=== PATIENT | male | born 1955 | race Caucasian/White ===

== ENCOUNTER 2018-04-26 20:58 | Outpatient (REF) | payer OTHER, SELFPAY ==
[2018-04-26 22:30] LABS: Bilirubin Small (Negative); Blood Negative (Negative); Clarity Clear; Glucose Negative (Negative); Ketones 15 mg/dL (Negative); Leukocyte Esterase Negative (Negative); Nitrite Negative (Negative); pH 6.5 (5-8)
[2018-04-26 22:32] LABS: Abs Immature Grans 0.04 k/cumm (0.0-0.09); Absolute Basophil Count 0.02 k/cumm (0.0-0.2); Absolute Eosinophil Count 0.06 k/cumm (0.0-0.7); Absolute Monocyte Count 0.79 k/cumm (0.11-0.7); Absolute Neutrophil Count 7.05 k/cumm (1.2-6.7); Basophils % 0.2; Eosinophils % 0.6; HCT 40.6 % (40.0-50.0); HGB 14.3 g/dL (13.5-17.5); Immature Grans % 0.4; Mean Corp. HGB Concentration 35.2 g/dL (32.0-36.0); Mean Corpuscular Hemoglobin 31.6 pg (27.0-33.0); Mean Corpuscular Volume 89.8 fL (80-95); Mean Platelet Volume 10.2 fL (8.0-11.0); Monocytes % 8.5; Neutrophils % 76.3; Platelet Count 281 x1000/uL (130-400); RBC 4.52 m/cumm (4.50-6.00); RBC Distribution Width 12.5 % (11.8-14.1); White Blood Cell Count 9.26 k/cumm (4.4-10.8)
[2018-04-26 22:39] LABS: ALT 51 U/L (12-78); AST 24 U/L (15-37); Albumin 3.4 g/dL (3.4-5.0); Alkaline Phosphatase 51 U/L (46-116); Anion Gap 7.4 mmol/L (3-11); BUN 9 mg/dL (7-18); Bilirubin, Total 1.1 mg/dL (0.2-1.0); CO2 32.6 mmol/L (21.0-32.0); CREATININE 0.78 mg/dL (0.70-1.30); Calcium 8.7 mg/dL (8.5-10.1); Chloride 98 mmol/L (98-107); Glucose 101 mg/dL (70-100); Potassium 3.4 mmol/L (3.5-5.1); Sodium 138 mmol/L (136-145); Total Protein 6.8 g/dL (6.4-8.2)
[2018-04-26 22:55] LABS: Bacteria Few HPF (Negative); C & S Indicated? No; Casts Negative LPF (Negative); Crystals Negative HPF (Negative); Epithelial Cells Rare HPF (Negative); Mucus Heavy (Negative); Other Cells Negative (Negative); RBC 0-2 (0-2); WBC 0-2 HPF (0-5)
== END 2018-04-26 21:18 ==
LOC: NCHCN 20:58
PROVIDERS: PCP Internal Medicine; Visit Provider Internal Medicine
DX: R61 Generalized hyperhidrosis (principal); R25.8 Other abnormal involuntary movements
CPT/HCPCS: 80053; 81003; 81015; 85025

== ENCOUNTER 2018-04-27 13:33 | Outpatient (CLI) | payer OTHER, SELFPAY ==
--- NOTE | 2018-04-27 13:44 | DI.RAD_ITS ---
SYMPTOMS/DIAGNOSIS: NIGHT SWEATS, R61 PA AND LATERAL CHEST: There are no prior comparison exams. There are streaky densities seen in a retrocardiac region suspicious for pneumonia. The remainder of the lung starkey appear clear. The heart size is normal. No effusions are seen. IMPRESSION: Question of a lower lobe pneumonia.
== END 2018-04-27 13:53 ==
PROVIDERS: PCP Internal Medicine; Visit Provider Internal Medicine
DX: R61 Generalized hyperhidrosis (principal); J98.4 Other disorders of lung
CPT/HCPCS: 71046

== ENCOUNTER 2018-05-12 00:18 | Outpatient (CLI) | payer OTHER, SELFPAY ==
--- NOTE | 2018-05-12 10:46 | DI.MRI_ITS ---
SYMPTOMS/DIAGNOSIS: NEW PARKINSON DISEASE, G20 MRI OF THE BRAIN: Routine noncontrast examination was performed. The ventricles and sulci are consistent with the patient's age. The diffusion weighted images show no evidence of an acute infarct. Gradient imaging shows no acute intracranial hemorrhage. The ventricles are intact. The basilar cisterns are patent. There is no acute midline shift or mass effect. There is a flow void seen in the [place] of [place]. The pituitary gland appears grossly unremarkable. There is mucosal thickening seen in the maxillary sinuses. There is a mucous retention cyst or polyp in the left maxillary sinus. The remaining visualized paranasal sinuses are clear. The orbits and retro-orbital soft tissues are unremarkable. There does appear to be normal signal in the doyle. IMPRESSION: Age appropriate cerebral atrophy.
[2018-05-12 13:24] LABS: Folate 6.8 ng/mL (8.6-20.0); Vitamin B12 462 pg/mL (193-986)
[2018-05-13 18:59] LABS: Copper, Serum 1.07 mcg/mL (0.75-1.45)
[2018-05-14 10:53] LABS: Ceruloplasmin 24.9 mg/dL
[2018-05-17 12:01] LABS: Methylmalonic Acid 0.29 nmol/mL (<=0.40)
== END 2018-05-12 00:38 ==
PROVIDERS: PCP Internal Medicine; Visit Provider Psychiatry & Neurology Neurology
DX: G20 Parkinson's disease (principal); G31.1 Senile degeneration of brain, not elsewhere classified
CPT/HCPCS: 36415; 80186; 82390; 70551; 82525; 82607; 82746

== ENCOUNTER 2019-12-11 13:05 | Outpatient (REF) | payer OTHER, SELFPAY ==
[2019-12-11 21:14] LABS: Anion Gap 6.9 mmol/L (3-11); BUN 7 mg/dL (7-18); CO2 31.1 mmol/L (21.0-32.0); CREATININE 0.74 mg/dL (0.70-1.30); Calcium 8.9 mg/dL (8.5-10.1); Chloride 103 mmol/L (98-107); Glucose 100 mg/dL (74-106); Potassium 3.9 mmol/L (3.5-5.1); Sodium 141 mmol/L (136-145)
== END 2019-12-11 13:25 ==
LOC: NCHCN 13:05
PROVIDERS: PCP Internal Medicine; Visit Provider Internal Medicine
DX: Z00.00 Encounter for general adult medical examination without abnormal findings (principal); R68.84 Jaw pain
CPT/HCPCS: 80048

== ENCOUNTER 2019-12-20 02:57 | Outpatient (CLI) | payer OTHER, SELFPAY ==
[2019-12-20] MEDS: Normal Saline - Diluent 50 ML VIAL IV (13:11)
[2019-12-20] MEDS: Omnipaque 350 MG/ML 100 ML BTL IJ (13:21)
--- NOTE | 2019-12-20 13:22 | DI.CT_ITS ---
EXAM: CT NECK W CLINICAL HISTORY: JAW PAIN,R68.84,SLIGHTLY ENLARGED LYMPH NODE LT SUBMENTAL REGION. TECHNIQUE: Imaging Protocol: Axial computed tomography images with coronal and sagittal reformatted images were created and reviewed CONTRAST MATERIAL: Intravenous: Omnipaque 350 Contrast volume:100 ml Contrast route:IV - COMPARISON: No exams were available for comparison FINDINGS: Parotids/submandibular/thyroid gland: Normal. Lymphadenopathy: There are scattered lymph nodes seen along the level one to level three all measuri ng less than 8 mm in short axis diameter which are physiologic in nature. Degenerative changes are se en in the cervical and upper thoracic spine. The temporomandibular joints appear normal. No bony er osions are seen in the mandible. Carotids/Jugular: Within normal limits. Soft tissues: The epiglottis and vocal cords are within normal limits. Images through both lung apice s show mild scarring. Sinuses: Mild ethmoid mucosal thickening and small mucous retention cyst at the floor of the right ma xillary sinus. Clear mastoids. IMPRESSION: No evidence of mass or adenopathy. Mild chronic sinus disease. RADIATION DOSE DELIVERED: 494.79mGy.cm Total DLP DATA REPOSITORY: All CT scans at this facility are submitted to the National Radiology Data Registry (NRDR) Dose Index Registry (DIR) with the [employer] (ACR). RADIATION OPTIMIZATION: All CT scans at this facility use at least one of these dose optimization te chniques: automated exposure control; mA and/or kV adjustment per patient size (includes targeted exa ms where dose is matched to clinical indication); or iterative reconstruction.
== END 2019-12-20 03:17 ==
PROVIDERS: PCP Internal Medicine; Visit Provider Internal Medicine
DX: R68.84 Jaw pain (principal); R59.0 Localized enlarged lymph nodes; J32.9 Chronic sinusitis, unspecified
CPT/HCPCS: 70491; J3490

== ENCOUNTER 2020-02-02 11:50 | Day surgery (SDC) | payer OTHER, SELFPAY ==
[2020-02-02] MEDS: Tropicam./Phenyleph. (1/2.5%) 5 ML BTL OS ×3 (12:18→12:30)
[2020-02-02 12:19] VITALS: BP 108/69; PULSE 66; RESP 18; TEMP 36.6; O2SAT 97
[2020-02-02] MEDS: Tetracaine 0.5% 4 ML BTL OS (12:59)
[2020-02-02] MEDS: Lidocaine 2% Jelly 6 ML SYR (13:02)
[2020-02-02] MEDS: Povidone-Iodine Ophth 30 ML BTL (13:13)
[2020-02-02] MEDS: Lidocaine 1% Pres-Free 5 ML VIAL (13:13)
[2020-02-02] MEDS: Duovisc Viscoelastic System EACH 1 EACH (13:13)
[2020-02-02] MEDS: Balanced Salt Soln.-PLUS 500 ML BAG (13:13)
[2020-02-02] MEDS: Moxifloxacin-PF 1 MG/ML VIAL (13:13)
--- NOTE | 2020-02-02 13:30 | W.PM.DSUDISC ---
Discharge Plan Disposition Patient Disposition: HOME Condition: Good Discharge Details Attending Provider: Colton Mcgowan Primary Care Provider: Gaurang Jones Home Meds and New Rx's Prescriptions: No Action folic acid 1 mg tablet 1 mg PO DAILY Qty: 90 RF: 3 loratadine 10 MG tablet,disintegrating 10 mg PO DAILY RF: 0 clonazepam [Klonopin] 0.5 MG tablet 0.5 mg PO BID RF: 0 carbidopa-levodopa [Sinemet] 25-100 mg tablet 1 tab PO TID Qty: 270 RF: 3 Discharge Instructions Stand Alone Forms: Post-op Topical Cataract, Radha Aguila (DSU) Discharge Orders Discharge Orders: Discharge Order (Routine); Ordered 02/02/20 Ordered By: Colton Mcgowan DS: Diagnosis Discharge Diagnosis (1) Nuclear sclerotic cataract of left eye: Status: Acute (2) Posterior subcapsular age-related cataract of left eye: Status: Acute
--- NOTE | 2020-02-02 13:32 | ROE_ITS ---
Date of service: 02/02/20 Time of Service: 13:33 Operative Note Operative Note DATE OF PROCEDURE: 02/02/20 PRE-OP DIAGNOSIS: Nuclear/posterior subcapsular cataract, left eye, symptomatic With the rule astigmatism, left eye POST-OP DIAGNOSIS: same SURGEON: Colton Mcgowan ANESTHESIA: MAC (with local sub-tenon's anesthetic injection) PATHOLOGY: none sent COMPLICATIONS: None Patient was transported to: same day Patient's condition: stable Implants: Rui and Rui Vision / CAITLIN Tecnis ZCT Toric Intraocular Lens Indications: Progressive decreased vision due to cataract, left eye, with corn eal astigmatism Procedure Description: CATARACT SURGERY OPERATIVE REPORT PREOPERATIVE DIAGNOSIS: Nuclear/posterior subcapsular cataract, left eye With double astigmatism, left eye POSTOPERATIVE DIAGNOSIS: Same OPERATION: Cataract extraction using phacoemulsification with posterior chamber toric intraocular lens implant, left eye. IOL: IOL Quality Control Microbiologist/Model: J&J Vision / CAITLIN Tecnis [id number] IOL Power: + 20.5 diopters sphere, 2.25 cylinder IOL Serial Number: [id number] Optic Diameter: 6.0mm Haptic/Overall Diameter: 13.00mm PHACO INFO: AdrianWave Semiconductorurion Vision System with OZil and Active Fluidics Cumulative Dispersed Energy (CDE): 18.76 seconds SURGEON: Colton Mcgowan MD, BROOK ANESTHESIA: Monitored Anesthesia Care (MAC), with local sub-tenon's anesthetic infiltration COMPLICATIONS: None SPECIMENS: None INDICATIONS FOR PROCEDURE: The patient is a 54-year-old gentleman with history of diminished visual acuity in his left eye secondary to the development of significant nuclear and posterior subcapsular cataract. He also has a history of with removal astigmatism and desires a toric intraocular lens implant and attempt to reduce this. PROCEDURE: The correct surgical eye was identified and marked as the left eye and the pupil was dilated in the preoperative area using mydriatics and cycloplegics. The dilated pupil size was 7.0 mm. With the patient in the seated position, topical anesthetic was applied and a surgical marker was used to kimani the limbus at 6:00 and 12:00 position. No oral sedation was given. The patient was brought to the operating room where cardiopulmonary monitoring was instituted and surgical time-out was performed, confirming the correct operative eye and IOL power. Topical anesthesia was administered and ophthalmic povidone-iodine 5% was instilled into the conjunctival fornices. Lidocaine gel was applied to the cornea and the reji-ocular area was prepped with Betadine 10% solution and draped in the usual sterile fashion for intraocular surgery, including an aperture drape. A Tegaderm transparent film dressing was cut in half and used to cover the lashes and lid margins. Care was taken to sequester the lashes and lid margins under the Tegaderm dressing. A lid speculum was placed between the lids of the operative eye and the Noel-Sharif operating microscope was maneuvered into position. Adis scissors were then used to make a conjunctival buttonhole approximately 6mm posterior to the limbus in the inferonasal quadrant. Blunt dissection was carried out to expose bare sclera, and a blunt-tipped sub-tenon?s anesthesia cannula was introduced and passed posteriorly along the globe where non- preserved plain lidocaine was injected into posterior sub-Tenon?s space. A corneal ring gauge and axis marker were then used to kimani the 354 degree position for the main phaco incision, and the 94 degree axis for alignment of t he toric IOL. A sideport knife was used to make a paracentesis port superior/superiortemporally. Intraocular phenylephrine/lidocaine was injected into the anterior chamber. The anterior chamber was then filled with viscoelastic. A 2.4mm keratome knife was used to create a half-thickness groove at the limbus and then to construct a three-plane near-clear corneal tunnel extending 2.0mm into clear cornea at the [] degree axis. . A flap was raised on the anterior capsule and capsulorhexis forceps were used to complete a continuous curvilinear capsulorhexis of 5.0 mm. Balanced salt solution was then used to perform cortical cleaving hydrodissection and nuclear hydrodelineation until the lens could be freely rotated within the capsular bag. The lens nucleus was then disassembled and removed within the capsular bag and iris plane using phacoemulsification. Residual cortical material was removed using the 45-degree angled silicone I/A tip with 0.3mm port. The posterior capsule was carefully polished to remove as much residual lens epithelial cells as safely possible. The capsular bag was then inflated and the anterior chamber deepened with viscoelastic. The lens implant described above was inserted into the capsular bag using the CAITLIN [place] Injector. A Kuglen hook was used to dial the IOL into position, about 10 degrees counterclockwise of its final alignment. Residual viscoelastic was then removed first from posterior to the IOL, then from the anterior chamber using the I/A handpiece. The I/A handpiece was then used to dial the IOL to the target axis. The lens implant was noted to center nicely within the capsular bag, with the toric IOL arcos aligned at the 94 degree axis. The incisions were stromally hydrated, and the anterior chamber was reformed using BSS. Then 0.5cc of moxifloxacin 1.0mg/ml were injected into the capsular bag and anterior chamber. The incisions were checked with a Weck spear and found to be secure. Several drops of ophthalmic povidone-iodine 5% were then applied to the eye followed by two drops of Imprimis combination prednisolone/moxifloxacin/nepafenac solution. The drapes were removed and a clear plastic protective eye shield was placed over the eye. The patient was then returned to Same Day Surgery in stable condition.
== END 2020-02-02 14:05 | disposition home or self-care (01) ==
PROVIDERS: PCP Internal Medicine; Visit Provider Ophthalmology
PROC: (CPT 66984; principal; 2020-02-02 08:30)
DX: H25.042 Posterior subcapsular polar age-related cataract, left eye (principal); G20 Parkinson's disease; G89.29 Other chronic pain; M54.5 Low back pain; F10.10 Alcohol abuse, uncomplicated; H52.202 Unspecified astigmatism, left eye
CPT/HCPCS: 66984; V2632

== ENCOUNTER 2020-02-23 08:10 | Day surgery (SDC) | payer OTHER, SELFPAY ==
[2020-02-23 08:30] VITALS: BP 110/64; PULSE 72; RESP 18; TEMP 36.4; O2SAT 98
[2020-02-23] MEDS: Tropicam./Phenyleph. (1/2.5%) 5 ML BTL OD ×3 (08:35→08:46)
--- NOTE | 2020-02-23 09:22 | W.PM.DSUDISC ---
Discharge Plan Disposition Patient Disposition: HOME Condition: Good Discharge Details Attending Provider: Colton Mcgowan Primary Care Provider: Gaurang Jones Home Meds and New Rx's Prescriptions: No Action folic acid 1 mg tablet 1 mg PO DAILY Qty: 90 RF: 3 loratadine 10 MG tablet,disintegrating 10 mg PO DAILY RF: 0 clonazepam [Klonopin] 0.5 MG tablet 0.5 mg PO BID RF: 0 carbidopa-levodopa [Sinemet] 25-100 mg tablet 1 tab PO TID Qty: 270 RF: 3 diclofenac sodium 50 mg Tablet,Delayed Release (Dr/Ec) 50 mg PO TID PRNRF: 0 Discharge Instructions Stand Alone Forms: Post-op Topical Cataract, Radha Aguila (DSU) DS: Diagnosis Discharge Diagnosis (1) Cortical cataract of right eye: Status: Resolved (2) Nuclear sclerotic cataract of right eye: Status: Resolved (3) Posterior subcapsular age-related cataract, right eye: Status: Resolved
[2020-02-23] MEDS: Tetracaine 0.5% 4 ML BTL OD (09:35)
[2020-02-23] MEDS: Povidone-Iodine Ophth 30 ML BTL (09:35)
[2020-02-23] MEDS: Lidocaine 2% Jelly 6 ML SYR (09:35)
[2020-02-23] MEDS: Balanced Salt Soln.-PLUS 500 ML BAG (09:37)
[2020-02-23] MEDS: Duovisc Viscoelastic System EACH 1 EACH (09:37)
[2020-02-23] MEDS: Lidocaine 1% Pres-Free 5 ML VIAL (09:37)
[2020-02-23] MEDS: Moxifloxacin-PF 1 MG/ML VIAL (09:57)
--- NOTE | 2020-02-23 10:06 | W.PM.OP ---
Date of service: 02/23/20 Time of Service: 10:06 Operative Note Operative Note DATE OF PROCEDURE: 02/23/20 PRE-OP DIAGNOSIS: Nuclear/cortical/posterior subcapsular cataract, right eye Corneal astigmatism, right eye POST-OP DIAGNOSIS: same PROCEDURE: Cataract extraction using phacoemulsification with toric intraocular lens implant, right eye SURGEON: Colton Mcgowan ANESTHESIA: MAC (with local sub-tenon's anesthetic injection) PATHOLOGY: none sent COMPLICATIONS: None Patient was transported to: same day Patient's condition: stable Implants: Rui and Rui Vision / CAITLIN Tecnis ZCT Toric Intraocular Lens Indications: Progressive decreased vision due to cataract, right eye, with corneal astigmatism Procedure Description: [] CATARACT SURGERY OPERATIVE REPORT PREOPERATIVE DIAGNOSIS: Nuclear/cortical/posterior subcapsular cataract, right eye with corneal astigmatism POSTOPERATIVE DIAGNOSIS: Same OPERATION: Cataract extraction using phacoemulsification with posterior chamber toric intraocular lens implant, right eye. IOL: IOL Business Planning Director/Model: J&J Vision / CAITLIN Tecnis [id number] IOL Power: + 21.0 diopters sphere, 2.25 cylinder IOL Serial Number: [id number] Optic Diameter: 6.0mm Haptic/Overall Diameter: 13.00mm PHACO INFO: Adrian LifeBiourion Vision System with OZil and Active Fluidics Cumulative Dispersed Energy (CDE): 9.70 seconds SURGEON: Colton Mcgowan MD, BROOK ANESTHESIA: Monitored Anesthesia Care (MAC), with local sub-tenon's anesthetic infiltration COMPLICATIONS: None SPECIMENS: None INDICATIONS FOR PROCEDURE: The patient is a 64-year-old gentleman with history of diminished visual acuity in both eyes secondary to development of bilateral cataracts. He has moderate corneal astigmatism as well. He has already undergone cataract surgery in his left eye with implantation of a toric intraocular lens implant. He now presents for cataract surgery in the right eye with toric implant as well. PROCEDURE: The correct surgical eye was identified and marked as the right eye and the pupil was dilated in the preoperative area using mydriatics and cycloplegics. The dilated pupil size was 6.5 mm. With the patient in the seated position, topical anesthetic was applied and a surgical marker was used to kimani the limbus at 6:00. A Surgilum Robomarker was then used to kimani the 0/180 degree reference axis. No oral sedation was given. The patient was brought to the operating room where cardiopulmonary monitoring was instituted and surgical time-out was performed, confirming the correct operative eye and IOL power. Topical anesthesia was administered and ophthalmic povidone-iodine 5% was instilled into the conjunctival fornices. Lidocaine gel was applied to the cornea and the reji-ocular area was prepped with Betadine 10% solution and draped in the usual sterile fashion for intraocular surgery, including an aperture drape. A Tegaderm transparent film dressing was cut in half and used to cover the lashes and lid margins. Care was taken to sequester the lashes and lid margins under the Tegaderm dressing. A lid speculum was placed between the lids of the operative eye and the Noel-Sharif operating microscope was maneuvered into position. Adis scissors were then used to make a conjunctival buttonhole approximately 6mm posterior to the limbus in the inferonasal quadrant. Blunt dissection was carried out to expose bare sclera, and a blunt-tipped sub-tenon?s anesthesia cannula was introduced and passed posteriorly along the globe where non-preserved plain lidocaine was injected into posterior sub-Tenon?s space. A corneal ring gauge and axis marker were then used to kimani the 154 degree position for the main phaco incision.and the 58/238 degree axis for alignment of the toric IOL. A sideport knife was used to make a paracentesis port at the 7:00 postion and the anterior chamber was filled with Healon GV. A 2.4mm keratome knife was used to create a half-thickness groove at the limbus and then to construct a three-plane near-clear corneal tunnel extending 2.0mm into clear cornea at the 154 degree axis. . A flap was raised on the anterior capsule and capsulorhexis forceps were used to complete a continuous curvilinear capsulorhexis of 5.0 mm. Balanced salt solution was then used to perform cortical cleaving hydrodissection and nuclear hydrodelineation until the lens could be freely rotated within the capsular bag. The lens nucleus was then disassembled and removed within the capsular bag and iris plane using phacoemulsification. Residual cortical material was removed using the 45-degree angled silicone I/A tip with 0.3mm port. The posterior capsule was carefully polished to remove as much residual lens epithelial cells as safely possible. The capsular bag was then inflated and the anterior chamber deepened with viscoelastic. The lens implant described above was inserted into the capsular bag using the CAITLIN [place] Injector. A Kuglen hook was used to dial the IOL into position, about 10 degrees counterclockwise of its final alignment. Residual viscoelastic was then removed first from posterior to the IOL, then from the anterior chamber using the I/A handpiece. The I/A handpiece was then used to dial the IOL to the target axis. The lens implant was noted to center nicely within the capsular bag, with the toric IOL arcos aligned at the 58/238 degree axis. The incisions were stromally hydrated, and the anterior chamber was reformed using BSS. Then 0.4cc of moxifloxacin 1.5mg/ml were injected into the capsular bag and anterior chamber. The incisions were checked with a Weck spear and found to be secure. Several drops of ophthalmic povidone-iodine 5% were then applied to the eye followed by two drops of Imprimis combination gatifloxacin/dexamethasone solution. The drapes were removed and a clear plastic protective eye shield was placed over the eye. The patient was then returned to Same Day Surgery in stable condition.
== END 2020-02-23 10:35 | disposition home or self-care (01) ==
PROVIDERS: PCP Internal Medicine; Visit Provider Ophthalmology
PROC: (CPT 66984; principal; 2020-02-23 09:45)
DX: H25.011 Cortical age-related cataract, right eye (principal); H25.11 Age-related nuclear cataract, right eye; H25.041 Posterior subcapsular polar age-related cataract, right eye; H52.201 Unspecified astigmatism, right eye
CPT/HCPCS: 66984; V2632

== ENCOUNTER 2020-12-17 16:50 | Outpatient (REF) | payer OTHER, SELFPAY ==
[2020-12-17 21:02] LABS: Calculated LDL 83 mg/dL (<100); Cholesterol 163 mg/dL (<200); HDL Cholesterol 57 mg/dL (40-60); Triglyceride 116 mg/dL (<150)
== END 2020-12-17 16:51 | disposition home or self-care (01) ==
LOC: NCHCN 16:50
PROVIDERS: PCP Internal Medicine; Visit Provider Internal Medicine
DX: Z00.00 Encounter for general adult medical examination without abnormal findings (principal)
CPT/HCPCS: 80061

== ENCOUNTER 2021-12-01 22:13 | Outpatient (REF) | payer OTHER, SELFPAY ==
[2021-12-01 21:20] LABS: Abs Immature Grans 0.03 10^3/uL (0.0-0.06); Absolute Basophil Count 0.06 10^3/uL (0.0-0.2); Absolute Eosinophil Count 0.08 10^3/uL (0.0-0.7); Absolute Lymphocyte Count 1.01 10^3/uL (1.2-3.4); Absolute Monocyte Count 0.58 10^3/uL (0.1-0.8); Absolute Neutrophil Count 6.91 10^3/uL (1.2-6.7); Basophils % 0.7; Eosinophils % 0.9; HCT 43.1 % (40.0-50.0); HGB 15.3 g/dL (13.5-17.5); Immature Grans % 0.3; Lymphocytes % 11.6; MCH 32.1 pg (27.0-33.0); MCHC 35.5 % (32.0-36.0); MCV 90 fL (80-95); MPV 9.7 fL (8.0-11.0); Monocytes % 6.7; Neutrophils % 79.8; Platelet Count 192 10^3/uL (130-400); RBC 4.77 10^6/uL (4.36-5.78); RDW 12.9 % (11.8-14.1); RDW-SD 42.6 fL; WBC 8.67 10^3/uL (4.4-10.8)
[2021-12-01 21:31] LABS: ALT 18 U/L (16-63); AST 22 U/L (15-37); Albumin 4.1 g/dL (3.4-5.0); Alkaline Phosphatase 48 U/L (46-116); Anion Gap 7.8 mmol/L (3-11); BUN 13 mg/dL (7-18); CO2 31.2 mmol/L (21.0-32.0); Calcium 8.9 mg/dL (8.5-10.1); Chloride 100 mmol/L (98-107); Estimated GFR 83.52 (mL/min/1.73m2); Glucose 100 mg/dL (74-106); Potassium 3.9 mmol/L (3.5-5.1); Sodium 139 mmol/L (136-145)
[2021-12-01 21:58] LABS: Bacteria Negative HPF (Negative); C & S Indicated? C&S Done As Ordered; Crystals Mod Calcium Oxalate HPF (Negative); Epithelial Cells Few HPF (Negative); Mucus Moderate (Negative); WBC 0-2 HPF (0-5)
== END 2021-12-01 22:14 | disposition home or self-care (01) ==
LOC: LBN 22:13
PROVIDERS: PCP Internal Medicine; Visit Provider Physician Assistant Medical
DX: R10.32 Left lower quadrant pain (principal); R82.998 Other abnormal findings in urine
CPT/HCPCS: 80053; 81015; 85025; 87086

== ENCOUNTER → 2021-12-02 14:59 | Outpatient (CLI) | payer MEDICARE, SELFPAY ==
--- NOTE | 2021-12-02 | DI.CT_ITS ---
Exam(s) CT ABDOMEN PELVIS WO EXAM: CT ABDOMEN PELVIS WO CLINICAL HISTORY: LT FLANK PAIN R10.9. TECHNIQUE: Imaging Protocol: Axial computed tomography images with coronal and sagittal reformatted images were created and reviewed. Oral:/ no COMPARISON: CT RENAL COLIC WO CONTRAST from 10/19/2017 FINDINGS: ABDOMEN: Lung Bases: Normal where visualized. Liver: Normal density. Stable cysts.. Gallbladder and biliary tract: No radiodense calculus or dilation. Pancreas: Normal density, no abnormal calcifications or inflammatory process. Spleen: Normal. Kidneys and ureters: Normal size, contour and axis. 4 millimeters stone left ureterovesical junction causing mild hydronephrosis. Mild left perinephric stranding. No additional calculi. No masses se en. Adrenal glands: No masses seen. Lymph nodes: Within normal limits. Abdominal Aorta: Abdominal portion non-dilated. Mild atherosclerotic changes. PELVIS: Bladder: Symmetric distention, no gross wall thickening. Bowel: Extensive diverticulosis. No evidence of diverticulitis. No obstruction or bowel wall thicke abdelrahman. Peritoneal cavity: No ascites, collection or mesenteric inflammatory response. Reproductive organs: Mildly enlarged prostate. Bones: Degenerative changes of both hips. Mild degenerative disc changes and mild facet joint degene rative changes IMPRESSION: Mild left hydronephrosis secondary to a 4 millimeter calculus at the ureterovesical junction. No add itional calculi.. RADIATION DOSE DELIVERED: 680.45mGy.cm Total DLP DATA REPOSITORY: All CT scans at this facility are submitted to the National Radiology Data Registry (NRDR) Dose Index Registry (DIR) with the [employer] (ACR). RADIATION OPTIMIZATION: All CT scans at this facility use at least one of these dose optimization te chniques: automated exposure control; mA and/or kV adjustment per patient size (includes targeted exa ms where dose is matched to clinical indication); or iterative reconstruction.
== END ==
PROVIDERS: PCP Internal Medicine; Visit Provider Physician Assistant Medical
DX: N13.2 Hydronephrosis with renal and ureteral calculous obstruction (principal)
CPT/HCPCS: 74176

== ENCOUNTER 2021-12-25 21:32 | Outpatient (REF) | payer MEDICARE, SELFPAY ==
[2022-01-01 00:04] LABS: Source: Passed Stone
== END 2021-12-25 21:33 | disposition home or self-care (01) ==
LOC: NCHCN 21:32
PROVIDERS: PCP Internal Medicine; Visit Provider Internal Medicine
DX: Z87.442 Personal history of urinary calculi (principal)
CPT/HCPCS: 82365

== ENCOUNTER 2022-01-20 16:47 | Outpatient (REF) | payer MEDICARE, SELFPAY ==
--- NOTE | 2022-01-20 10:30 | SKI_PTH ---
PATIENT: Zeke Osuna LOC: [facility]#:[id number] AGE/SX: 66/M ROOM: RE01/20/[address]: Gaurang Jones : 1955 BED: DIS: 01/20/2022 SPEC #: [id number] RECD: 01/20/22 17:06 STATUS: JEOVANY MAZA #: [id number] GABRIELA: 01/20/22 10:[address]: Gaurang Jones DEPT: Surgical Specimen RECD BY: Bonnie Welch Tissues: 1 - SKIN BIOPSY(SHAVE/PUNCH) Procedures: SKIN LEVEL 4 Comments: [id number]
== END 2022-01-20 16:48 | disposition home or self-care (01) ==
LOC: NCHCN 16:47
PROVIDERS: PCP Internal Medicine; Visit Provider Internal Medicine
DX: C44.619 Basal cell carcinoma of skin of left upper limb, including shoulder (principal)
CPT/HCPCS: 88305

== ENCOUNTER → 2022-03-30 13:42 | Outpatient (BNVA) | payer MEDICARE, SELFPAY | PROVIDERS: PCP Internal Medicine; Referring Provider Internal Medicine; Visit Provider Psychiatry & Neurology Neurology | DX: G20 Parkinson's disease (principal) | CPT/HCPCS: 99213 ==

== ENCOUNTER → 2022-10-05 12:46 | Outpatient (BNVA) | payer MEDICARE, SELFPAY | PROVIDERS: PCP Internal Medicine; Referring Provider Internal Medicine; Visit Provider Psychiatry & Neurology Neurology | DX: G20 Parkinson's disease (principal) | CPT/HCPCS: 99213 ==

== ENCOUNTER → 2022-12-31 14:55 | Outpatient (CLI) | payer MEDICARE, SELFPAY ==
--- NOTE | 2022-12-31 | DI.RAD_ITS ---
Exam(s) XR CHEST 2V PA LATERAL EXAM: XR CHEST 2V PA LATERAL CLINICAL HISTORY: CHRONIC COUGH R05.3 TECHNIQUE: 2D digital imaging was performed. COMPARISON: CR XR CHEST 2V PA LATERAL from 04/27/2018 FINDINGS: HEART: Normal size. Aorta: Not dilated. PULMONARY VASCULATURE: Normal. LUNGS: Clear. PLEURAL SPACE: No pleural effusion or pneumothorax. BONE:Scoliosis. Syndesmophyte formation along the thoracic spine. No compression fractures. IMPRESSION: No acute abnormality. DATA REPOSITORY: RADIATION DOSE DELIVERED:
== END ==
PROVIDERS: PCP Internal Medicine; Visit Provider Internal Medicine
DX: R05.3 Chronic cough (principal)
CPT/HCPCS: 71046

== ENCOUNTER → 2023-04-06 13:15 | Outpatient (BNVA) | payer MEDICARE, SELFPAY | PROVIDERS: PCP Internal Medicine; Referring Provider Internal Medicine; Visit Provider Psychiatry & Neurology Neurology | DX: G20.C Parkinsonism, unspecified (principal); R13.10 Dysphagia, unspecified | CPT/HCPCS: 99215 ==

== ENCOUNTER 2023-04-12 15:05 | Outpatient (REF) | payer MEDICARE, SELFPAY ==
[2023-04-12 14:54] LABS: Abs Immature Grans 0.02 10^3/uL (0.0-0.06); Absolute Basophil Count 0.05 10^3/uL (0.0-0.2); Absolute Eosinophil Count 0.11 10^3/uL (0.0-0.7); Absolute Lymphocyte Count 1.18 10^3/uL (1.2-3.4); Absolute Monocyte Count 0.34 10^3/uL (0.1-0.8); Absolute Neutrophil Count 4.42 10^3/uL (1.2-6.7); Basophils % 0.8; Eosinophils % 1.8; HCT 44.8 % (40.0-50.0); HGB 15.7 g/dL (13.5-17.5); Immature Grans % 0.3; Lymphocytes % 19.3; MCV 91 fL (80-95); MPV 9.8 fL (8.0-11.0); Monocytes % 5.6; Neutrophils % 72.2; Platelet Count 224 10^3/uL (130-400); RDW 12.8 % (11.8-14.1); RDW-SD 42.9 fL; WBC 6.12 10^3/uL (4.4-10.8)
[2023-04-12 14:57] LABS: ESR 2 mm/hr (0-20)
[2023-04-12 15:41] LABS: ALT 14 U/L (16-63); AST 12 U/L (15-37); Albumin 4.1 g/dL (3.4-5.0); Alkaline Phosphatase 48 U/L (46-116); Anion Gap 7.1 mmol/L (3-11); BUN 11 mg/dL (7-18); Bilirubin, Total 0.8 mg/dL (0.2-1.0); CO2 31.9 mmol/L (21.0-32.0); CREATININE 0.8 mg/dL (0.70-1.30); Calcium 8.9 mg/dL (8.5-10.1); Chloride 102 mmol/L (98-107); Estimated GFR 97.61 (mL/min/1.73m2); Glucose 83 mg/dL (74-106); Potassium 4.1 mmol/L (3.5-5.1); Sodium 141 mmol/L (136-145); TSH (W/Ref FT4) 1.13 uIU/mL (0.36-3.74)
== END 2023-04-12 15:06 | disposition home or self-care (01) ==
LOC: NCHCN 15:05
PROVIDERS: PCP Family Medicine; Visit Provider Family Medicine
DX: R63.4 Abnormal weight loss (principal)
CPT/HCPCS: 80053; 85652; 84443; 85025

== ENCOUNTER → 2023-05-12 01:09 | Outpatient (CLI) | payer MEDICARE, SELFPAY ==
[2023-05-12] MEDS: Barium Sulfate Oral Paste 40% W/V 230 ML TUBE PO (15:02)
[2023-05-12] MEDS: Barium Sulfate 81% w/w for Oral Suspension 148 GM BTL PO (15:03)
[2023-05-12] MEDS: Barium Sulfate 40% W/V 240 ML BTL PO (15:04)
--- NOTE | 2023-05-12 15:06 | DI.RAD_ITS ---
Exam(s) RF MODIFIED SPEECH BA SWALLOW TECHNIQUE: Modified barium swallow was performed in conjunction with speech pathology. CONTRAST MATERIAL: Oral barium Oral water soluble contrast was administered. COMPARISON: No exams were available for comparison FINDINGS: Fluoroscopy provided during modified barium swallow study performed our department in conjunction wit h the speech therapist. The radiologist was present in the fluoroscopy suite for this entire procedu re. Please refer to speech therapist report. There was aspiration evident on this study. IMPRESSION: As above. See procedure report from speech therapist RADIATION DOSE DELIVERED: bulmaro Diallo=17.4 mGy
--- NOTE | 2023-05-12 15:44 | ST.MBS_ITS ---
Date of Service Date of service: 05/12/23 Time of Service: 14:30 Modified Barium Swallow Study Findings: Video fluoroscopic Swallowing Evaluation (VFSE) / Modified Barium Swallow Study (MBSS) Speech Language Pathology Report Patient referred for VFSE/MBSS from Dr. Platt given dysphagia in setting of Parkinson's Disease. HPI & Patient report of function: Zeke Osuna is a 66 y/o M with idiopathic Parkinson's Disease dx'd 2019, generalized anxiety disorder, ETOH, referred by neurology in 2022 for worsening dysphagia and difficulty with saliva management. Recently re-assessed by ELECTRICAL ENGINEERING TECHNICIAN due to increased difficulty with solid foods, and MBSS was recommended. IMPRESSIONS: Swallow safety is impaired; swallow efficiency is impaired. Severe chronic pharyngeal>oral dysphagia characterized by diffuse pharyngeal deficits but most notably: reduced anterior hyoid movement and associated absent epiglottis inversion/PES opening, reduced pharyngeal wall stripping wave. Also noting mild reduced airway protection/closure. Oral control was quite good but did note some lingual tremulousness with liquids. Swallow initiation relatively timely. These deficits resulted in a significant amount of vallecular>pyriform residue and resulted in aspiration into the airway of thin liquids both during but especially after the swallow. Patient was successful at times in clearing thin liquids from the airway, but unable to effectively re-swallow and residue would repeatedly drip into the airway despite efforts to clear. Patient aspirated on both thin and thickened liquids but was less successful in clearing more viscous liquids from airway. No aspiration of puree and solid textures but residue was significant, with patient unable to actually clear material from pharynx even by end of study with several strategies and attempts made to clear. Clinical Indicator(s) of Prandial/Postprandial Aspiration include: inconsistent cough vs Throat Clear. Suspect dysphagia presentation due to PD though cannot rule out other factors. Patient appears to be at high risk for potential aspiration PNA and/or pulmonary compromise and mild risk for malnutrition, mild risk for dehydration. Diet modification is indicated; non-oral nutrition is not indicated, especially given patient has not developed any aspiration pneumonia to date indicating several protective factors including activity level and overall pulmonary health. Swallow prognosis is guarded given: Positive prognostic factors: Motivation, Cognitive status, Negative prognostic factors: Severity, Ineffectiveness of trialed compensatory strategies, Disease course and pending patient/caregiver training in risk management as outlined, including use of trialed compensatory strategies. Patient appears to be a good candidate for behavioral swallow rehabilitation. RECOMMENDATIONS: Diet Texture Recommendation:? IDDSI LEVEL SOLIDS 6-Soft & Bite-Sized Solids with added sauces/moisture vs 5-Minced & Moist Solids LIQUIDS 0-Thin Liquids - it is recommended maximize intake of water (vs other liquids) paired with frequent oral care in order to reduce risk of bacterial aspiration pneumonia. Please see further details at?www.iddsi.org MEDICATIONS Whole or Cut, as able with 4-Puree. Swallow a single bite of puree, then follow with medication in puree to minimize chances of tablets being suspended in valleculae. Diet texture modification is per patient's preference; please adjust diet textures at patient's discretion & collaboration with care team. Do not alter medications (e.g., cut)? without advice from your MD or pharmacist. Risk Management Strategies:? Very small sips, approx 5mL / teaspoon Multiple swallows per bolus to encourage clearance of pharyngeal stasis/residue Control risk factors for aspiration pneumonia via (a) thorough oral hygiene & (b) maintaining physical mobility as tolerated PLAN: Therapy: Recommend subsequent outpatient session with ELECTRICAL ENGINEERING TECHNICIAN to review results of today's exam and develop treatment plan as appropriate. May consider the following: Oropharyngeal Exercises to target deficits noted in objective section above (CTAR/Shaker, Faith) Further Compensatory Strategy Training, Further Training/Education in Risk Management, Training in RMST Program, Further Counseling re: Options for maintaining quality of life in context of dysphagia presentation Goals: TBD pending patient/caregiver interview Follow-up exam: Recommend repeat VFSE/MBSS every 6 months ----- OBJECTIVE Videofluoroscopic Swallow Evaluation (VFSE/MBSS) was conducted in the lateral projection by Speech-Language Pathologist, in collaboration with Radiologist, to evaluate oropharyngeal swallow function. Anatomic view under fluoroscopy: WFL PO Barium Contrast Trials Oral barium water-soluble contrast was administered as follows: IDDSI Level 0 Varibar thin liquid (40% w/v) IDDSI Level 2 Varibar nectar thick/mildly thick liquid (40% w/v) IDDSI Level 4 Varibar pudding/pureed/extremely thick (40% w/v) IDDSI Level 7 Regular Solid: 1/2 deacon cracker coated in 3 mL Varibar pudding MBSImP Component Scores: COMPONENT Scale SCORE 1 Lip closure (0-4) 1 Resulted in interlabial escape, without progression to anterior lip 2 Hold Position (0-3) 0 Maintained a cohesive bolus between tongue to palatal seal 3 Bolus Preparation (0-4) 0 Resulted in timely and efficient chewing and mashing 4 Bolus Transport (0-4) 2 Was with slowed tongue motion 5 Oral Residue (0-4) 2 Was a collection on oral structures 6 Swallow Initiation (0-4) 2 Occurred as bolus head at posterior laryngeal surface of epiglottis 7 Soft Palate Elevation (0-4) 1 Allowed a trace column of contrast or air between soft palate and pharyngeal wall 8 Laryngeal Elevation (0-3) 1 Was decreased with partial superior movement of thyroid cartilage/partial approximation of arytenoids to epiglottic petiole 9 Anterior Hyoid Motion (0-2) 1 Demonstrated partial anterior movement (minimal) 10 Epiglottic Movement (0-2) 2 Resulted in no inversion 11 Laryngeal Closure (0-2) 1 Was incomplete with narrow a column of air/contrast in laryngeal vestibule 12 Pharyngeal Stripping Wave (0-2) 1 Was present, but diminished (minimal) 13 Pharyngeal Contraction (0-3) NA 14 PES Opening (0-3) 1 Demonstrated partial distension/partial duration, with partial obstruction of flow 15 Tongue Base Retraction (0-4) 2 Allowed a narrow column of contrast or air between the retracted tongue base and the posterior pharyngeal wall 16 Pharyngeal Residue (0-4) 3 Was the majority of contrast within or on pharyngeal structures (Reg. solid>puree>liquids) 17 Esophageal Clearance (0-4) NA Results: COMPONENT Scale SCORE 1 Oral Score (0-18) 6 2 Pharyngeal Score (0-29) 13 3 Esophageal Score (0-4) 0 Penetration-Aspiration Scale: COMPONENT Scale SCORE 1 Thin liquid (1-8) 8 Contrast entered the airway, passed below the vocal folds, and no effort was made to eject. 2 [place] thick (1-8) 7 Contrast entered the airway, passed below the vocal folds, and was not ejected from the trachea despite effort. 3 Honey thick (1-8) NA 4 Pudding thick (1-8) 1 Contrast did not enter the airway 5 Cookie (1-8) 1 Contrast did not enter the airway Other notes: Patient attempts to cough/clear aspirated material appearing with reduced sharpn ess. Trialed Compensatory Strategies & Outcome: Maneuvers Successful (+) Unsuccessful (-) Postures Successful (+) Unsuccessful (-) 3 second Preparatory Set? +/- ? Chin Tuck Posture? -? Cough? ? Posterior Head tilt? Reflexive? Cued? +/- inconsistently helpful? ? ? Throat Clear? ? Head Tilt to? Reflexive? Left? Cued? Right? ? Saliva swallow? ?+ to reduce residue, but minimally Head Turn/Rotate to? ? Supraglottic Swallow? Left? - ? Super-supraglottic Swallow? Right? ? Bolus Modifications Successful (+) Unsuccessful (-) Delivery/Alternating Consistencies ? Follow with Liquid Wash - ? Follow with Solid Bolus? Delivery/Via Straw? ? Reduced Volume? + reduced but not eliminated aspiration? Reduced Rate of Intake? ? Increased Viscosity? - did not eliminate aspiration and was harder to clear? Other:?? ? Thank you for allowing us to take part in this patient's care. Please feel free to contact the [facility] Speech Language Pathology Department with any questions/concerns.
== END ==
PROVIDERS: PCP Family Medicine; Visit Provider Psychiatry & Neurology Neurology
DX: R13.13 Dysphagia, pharyngeal phase (principal); R13.11 Dysphagia, oral phase; G20.C Parkinsonism, unspecified
CPT/HCPCS: 92526; 92611; 74221

== ENCOUNTER → 2023-10-05 13:14 | Outpatient (BNVA) | payer MEDICARE, SELFPAY | PROVIDERS: PCP Family Medicine; Visit Provider Psychiatry & Neurology Neurology | DX: G20.C Parkinsonism, unspecified (principal); R13.10 Dysphagia, unspecified | CPT/HCPCS: 99214 ==

== ENCOUNTER → 2024-04-04 10:47 | Outpatient (BNVA) | payer MEDICARE, SELFPAY | PROVIDERS: PCP Family Medicine; Visit Provider Psychiatry & Neurology Neurology | DX: G20.C Parkinsonism, unspecified (principal); R13.10 Dysphagia, unspecified; K59.00 Constipation, unspecified | CPT/HCPCS: 99213 ==

== ENCOUNTER 2024-04-10 16:45 | Outpatient (REF) | payer MEDICARE, SELFPAY ==
[2024-04-10 20:54] LABS: Abs Immature Grans 0.05 10^3/uL (0.0-0.06); Absolute Basophil Count 0.07 10^3/uL (0.0-0.2); Absolute Eosinophil Count 0.09 10^3/uL (0.0-0.7); Absolute Monocyte Count 0.63 10^3/uL (0.1-0.8); Basophils % 0.5 %; Eosinophils % 0.7 %; HCT 38.7 % (40.0-50.0); HGB 13.4 g/dL (13.5-17.5); Immature Grans % 0.4 %; Lymphocytes % 9.9 %; MCH 31.5 pg (27.0-33.0); MCHC 34.6 % (32.0-36.0); MCV 91 fL (80-95); MPV 9.5 fL (8.0-11.0); Monocytes % 4.7 %; Neutrophils % 83.8 %; Platelet Count 310 10^3/uL (130-400); RBC 4.25 10^6/uL (4.36-5.78); RDW 13.4 % (11.8-14.1); RDW-SD 44.2 fL
[2024-04-10 20:55] LABS: Absolute Lymphocyte Count 1.34 10^3/uL (1.2-3.4); Absolute Neutrophil Count 11.31 10^3/uL (1.2-6.7)
[2024-04-10 21:19] LABS: ALT 6 U/L (16-63); AST 14 U/L (15-37); Albumin 3.2 g/dL (3.4-5.0); Alkaline Phosphatase 49 U/L (46-116); Anion Gap 5.8 mmol/L (3-11); BUN 13 mg/dL (7-18); Bilirubin, Total 0.95 mg/dL (0.2-1.0); CO2 30.2 mmol/L (21.0-32.0); CREATININE 0.9 mg/dL (0.70-1.30); Calcium 8.8 mg/dL (8.5-10.1); Chloride 103 mmol/L (98-107); Estimated GFR 93.61 (mL/min/1.73m2); Glucose 113 mg/dL (74-106); Sodium 139 mmol/L (136-145); TSH (W/Ref FT4) 0.62 uIU/mL (0.36-3.74); Total Protein 6.6 g/dL (6.4-8.2)
== END 2024-04-10 16:46 | disposition home or self-care (01) ==
LOC: NCHCN 16:45
PROVIDERS: PCP Family Medicine; Visit Provider Family Medicine
DX: R53.83 Other fatigue (principal)
CPT/HCPCS: 80053; 84443; 85025

== ENCOUNTER 2024-04-12 00:36 | Outpatient (CLI) | payer MEDICARE, SELFPAY ==
--- NOTE | 2024-04-12 | DI.RAD_ITS ---
Exam(s) XR CHEST 2V PA LATERAL EXAM: XR CHEST 2V PA LATERAL CLINICAL HISTORY: CHRONIC COUGH R05.3. TECHNIQUE: 2D digital imaging was performed. COMPARISON: CR XR CHEST 2V PA LATERAL from 12/31/2022 FINDINGS: 2 views: Heart size is normal. The mediastinum is not widened. Bilateral hyperinflation. There is now significant infiltrate in the lower right lung, probably righ t middle lobe. No pleural effusion. Left lung clear. IMPRESSION: Right lower lung infiltrate. Probably in the right middle lobe. No pleural effusions. DATA REPOSITORY: RADIATION DOSE DELIVERED:
== END 2024-04-12 00:56 ==
PROVIDERS: PCP Family Medicine; Visit Provider Family Medicine
DX: R91.8 Other nonspecific abnormal finding of lung field (principal)
CPT/HCPCS: 71046

== ENCOUNTER → 2024-05-25 12:15 | Outpatient (BNVA) | payer MEDICARE, SELFPAY | PROVIDERS: PCP Family Medicine; Referring Provider Family Medicine; Visit Provider Psychiatry & Neurology Neurology | DX: G20.C Parkinsonism, unspecified (principal); R13.10 Dysphagia, unspecified; K59.00 Constipation, unspecified | CPT/HCPCS: 99214 ==

== ENCOUNTER 2024-06-04 19:27 | Emergency (ER) | payer MEDICARE, SELFPAY ==
[2024-06-04 19:29] VITALS: BP 137/78; PULSE 131; RESP 22; TEMP 39.1; O2SAT 92
--- NOTE | 2024-06-04 19:30 | DI.RAD_ITS ---
Exam(s) XR CHEST 2V PA LATERAL EXAM: XR CHEST 2V PA LATERAL CLINICAL HISTORY: fever, cough TECHNIQUE: 2D digital imaging was performed. Two views. COMPARISON: CR XR CHEST 2V PA LATERAL from 12/31/2022 CR XR CHEST 2V PA LATERAL from 04/12/2024 FINDINGS: HEART: Normal size. Aorta: Not dilated. PULMONARY VASCULATURE: Normal. MEDIASTINUM: Unremarkable. LUNGS: Increased density at the medial right lung base. Also question of increased densities at the left lung base. PLEURAL SPACE: No pleural effusion or pneumothorax. BONE:Unremarkable mild scoliosis. Flowing osteophytes. SOFT TISSUES: Unremarkable. IMPRESSION: Right middle or lower lobe pneumonia. Question of left lower lobe pneumonia. DATA REPOSITORY: RADIATION DOSE DELIVERED:
--- NOTE | 2024-06-04 19:42 | ED.GENADUL_ITS ---
Discharge Plan Disposition Patient Disposition: Home Condition: Stable Discharge Details Clinical Impression: CAP (community acquired pneumonia) Primary Care Provider: Milton Armenta ED Provider: Kiel Kaplan Home Meds and New Rx's Prescriptions: New amoxicillin 875 mg tablet 875 mg PO BID 7 Days Qty: 14 0RF azithromycin 250 mg tablet 250 mg PO DAILY 4 Days Qty: 4 0RF Continued carbidopa-levodopa [Sinemet] 25-100 mg tablet 1 tab PO TID Qty: 270 3RF Rx Instructions: Take around 7am, noon, and 5pm. diclofenac potassium 50 mg tablet 50 mg PO TID PRN loratadine 10 MG tablet,disintegrating 10 mg PO DAILY folic acid 1 mg tablet 1 mg PO DAILY Qty: 90 3RF Discharge Instructions Additional Instructions: Your blood work did not show any concerning findings. Take the antibiotics as prescribed. If not improving this week follow-up with your primary care provider. If you feel significantly more ill or have difficulty breathing return to the emergency department for reevaluation HPI General Mode of arrival: ambulatory . Date/Time Provider Initiated Documentation: 06/04/24 19:28 . Limitations to Documentation: no limitations . Information obtained by: patient . History of Present Illness 68 year old M presents to the emergency department with the chief complaint of fever, described as moderate, Patient started experiencing this day(s) (1) and it has been constant. No relieving factors improve symptom(s), No exacerbating factors reported . Patient notes cough and fever/chills; denies chest pain. Patient did receive the following treatments prior to arrival, none Related Data Home Medications ?Medication ?Instructions ?Recorded ?Confirmed loratadine 10 mg disintegrating 10 mg PO DAILY 03/30/14 06/04/24 tablet diclofenac potassium 50 mg tablet 50 mg PO TID PRN 03/30/22 06/04/24 folic acid 1 mg tablet 1 mg PO DAILY #90 tabs 07/15/22 06/04/24 carbidopa 25 mg-levodopa 100 mg 1 tab PO TID #270 tabs 10/05/23 06/04/24 tablet (Sinemet) amoxicillin 875 mg tablet 875 mg PO BID 7 days #14 tabs 06/04/24 azithromycin 250 mg tablet 250 mg PO DAILY 4 days #4 tabs 06/04/24 Previous Rx's ?Medication ?Instructions ?Recorded folic acid 1 mg tablet 1 mg PO DAILY #90 tabs 07/15/22 carbidopa 25 mg-levodopa 100 mg 1 tab PO TID #270 tabs 10/05/23 tablet (Sinemet) amoxicillin 875 mg tablet 875 mg PO BID 7 days #14 tabs 06/04/24 azithromycin 250 mg tablet 250 mg PO DAILY 4 days #4 tabs 06/04/24 Allergies Allergy/AdvReac Type Severity Reaction Status Date / Time metronidazole (From Flagyl) Allergy Intermediate rash Verified 06/04/24 19:34 General Stated Complaint: RespSymp WILLIAM: 3 Review of Systems All systems reviewed & are unremarkable except as noted in HPI and below Constitutional Constitutional: Reports chills, Reports fever(s) and Denies weakness Cardiovascular Cardiovascular: Denies chest pain Respiratory Respiratory: Reports cough Gastrointestinal Gastrointestinal: Denies abdominal pain, Denies nausea and Denies vomiting Neurologic Neurologic: Denies weakness Psychiatric Psychiatric: Denies depression Exam Const General: no acute distress Orientation: alert HENMT Head: normal to inspection Ears: external ears normal General nose exam: external nose normal Mouth: moist mucous membranes Eyes General: appearance normal, both eyes and all related structures Neck Neck: normal visual inspection Resp Effort & Inspection: normal respiratory effort and able to speak in complete sentences Auscultation: rhonchi Cardio Jugular venous pressure: no JVD Rate: regular rate Skin General skin exam: no rashes or lesions noted Neuro General: patient alert and patient oriented x3 Extrem General: normal to inspection Psych Mental Status: mental status grossly normal Course Vital Signs Vital signs: Vital Signs Temperature 39.1 C H 06/04/24 19:29 Pulse 131 H 06/04/24 19:29 Respiratory Rate 22 06/04/24 19:29 Blood Pressure 137/78 06/04/24 19:29 Pulse Oximetry 92 06/04/24 19:29 Temperature 39.1 C H 06/04/24 19:29 Pulse 131 H 06/04/24 19:29 Respiratory Rate 22 06/04/24 19:29 Blood Pressure 137/78 06/04/24 19:29 Pulse Oximetry 92 06/04/24 19:29 Pain Level 0 06/04/24 19:29 Lab/Test Results Lab/Test Results: 06/04/24 19:35 Blood Blood Culture - Pending 06/04/24 19:35 Blood Blood Culture - Pending Medical Decision Making 68-year-old male with a history of Parkinson's comes in with persistent cough for over a week and started having a fever today. Has not take anything for his fever cough. He says in April he was treated for pneumonia with a Z-Salazar and that did improve his symptoms but then his cough returned. Denies any recent travel, vomiting. He is ambulatory on arrival. He is speaking full sentences. He does have rhonchi at the bases bilaterally. I suspect respiratory infection, will check a Fluvid and obtain a CBC, CMP, lactate and procalcitonin and a chest x-ray to further evaluate.\ labs unremarkable, patient feels better and on my read of the xray has a small right lower lobe infiltrate. Discussed with pt and Given reassuring workup feel he can be treated as an outpatient. I will start him on Augmentin and azithromycin he will follow-up with his PCP if not improving this week. Return precautions given. Differential Diagnosis Differential Diagnosis: covid, pneumonia Quality:SDOH Health Related Social Needs: No Data to Display PFSH All Active Problems (Updated 06/04/24 @ 21:10 by Kiel Kaplan MD) CAP (community acquired pneumonia) (Acute) Dysphagia (Acute) Nuclear sclerotic cataract of left eye (Acute) Posterior subcapsular age-related cataract of left eye (Acute) ETOH abuse (Chronic) Parkinson disease (Chronic) Medical History Constipation Cataract History of tobacco abuse Allergic rhinitis Generalized anxiety disorder History of proctitis Shoulder pain, right Bradykinesia Chronic low back pain Hearing loss Night sweats Parkinsons Environmental allergies Proctitis Anxiety Surgical History History of cataract surgery S/P scrotal varicocelectomy Spermatocele 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
[2024-06-04] MEDS: Normal Saline 1,000 ML 1000 ML IV (20:10)
[2024-06-04] MEDS: Acetaminophen 500 MG TAB 1000 MG PO (20:10)
[2024-06-04 20:11] LABS: Lactate 1.2 mmol/L (<or=2.0)
[2024-06-04 20:13] LABS: Abs Immature Grans 0.04 10^3/uL (0.0-0.06); Absolute Basophil Count 0.02 10^3/uL (0.0-0.2); Absolute Eosinophil Count 0.01 10^3/uL (0.0-0.7); Absolute Lymphocyte Count 0.43 10^3/uL (1.2-3.4); Absolute Monocyte Count 0.42 10^3/uL (0.1-0.8); Absolute Neutrophil Count 9.53 10^3/uL (1.2-6.7); Basophils % 0.2 %; Eosinophils % 0.1 %; HCT 44.8 % (40.0-50.0); HGB 15.6 g/dL (13.5-17.5); Immature Grans % 0.4 %; Lymphocytes % 4.1 %; MCH 31.8 pg (27.0-33.0); MCHC 34.8 % (32.0-36.0); MCV 91 fL (80-95); MPV 8.9 fL (8.0-11.0); Neutrophils % 91.2 %; Platelet Count 211 10^3/uL (130-400); RDW-SD 43.6 fL; WBC 10.45 10^3/uL (4.4-10.8)
[2024-06-04 20:15] LABS: Bilirubin Negative (Negative); Blood Trace-intact (Negative); Clarity Clear (Clear); Glucose Negative (Negative); Ketones Negative (Negative); Leukocyte Esterase Negative (Negative); Nitrite Negative (Negative)
[2024-06-04 20:16] VITALS: BP 112/79; PULSE 126; RESP 21; TEMP 37.6; O2SAT 95
[2024-06-04 20:20] LABS: Bacteria Negative HPF (Negative); C & S Indicated? No; Crystals Mod Calcium Oxalate HPF (Negative); Epithelial Cells Rare HPF (Negative); Mucus Negative (Negative); RBC 0-2 HPF (0-2); WBC Negative HPF (0-5)
[2024-06-04 20:21] LABS: COVID-19 PCR Negative (Negative); Influenza A PCR Negative (Negative); Influenza B PCR Negative (Negative); RSV PCR Negative (Negative)
[2024-06-04 20:22] LABS: Source Nasopharynx
[2024-06-04 20:32] LABS: ALT 13 U/L (16-63); AST 11 U/L (15-37); Alkaline Phosphatase 56 U/L (46-116); Anion Gap 8.2 mmol/L (3-11); BUN 15 mg/dL (7-18); Bilirubin, Total 0.8 mg/dL (0.2-1.0); CO2 28.8 mmol/L (21.0-32.0); CREATININE 0.7 mg/dL (0.70-1.30); Calcium 9.4 mg/dL (8.5-10.1); Chloride 102 mmol/L (98-107); Estimated GFR 100.99 (mL/min/1.73m2); Glucose 154 mg/dL (74-106); Magnesium 1.7 mg/dL; Potassium 3.7 mmol/L (3.5-5.1); Sodium 139 mmol/L (136-145); Total Protein 7.4 g/dL (6.4-8.2)
[2024-06-04 20:43] LABS: Procalcitonin < 0.10 ng/mL
[2024-06-04] MEDS: Amoxicillin 875/Clav. 125 TAB PO (21:15)
[2024-06-04] MEDS: Azithromycin 250 MG TAB 500 MG PO (21:16)
[2024-06-04 21:35] VITALS: BP 127/68; PULSE 108; RESP 19; TEMP 37.6; O2SAT 95
--- NOTE | 2024-06-04 21:50 | DI.VRAD_ITS ---
PROCEDURE INFORMATION: Exam: XR Chest Exam date and time: 06/04/2024 8:24 PM Age: 68 years old Clinical indication: Cough and fever TECHNIQUE: Imaging protocol: Radiologic exam of the chest. Views: 2 views. COMPARISON: CR XR CHEST 2V PA LATERAL 04/12/2024 12:57 PM FINDINGS: Lungs: Right lower lobe infiltrate consistent with a pneumonia. Emphysematous configuration of the lungs. Pleural spaces: Unremarkable. No pleural effusion. No pneumothorax. Heart/Mediastinum: Unremarkable. No cardiomegaly. Bones/joints: Unremarkable. IMPRESSION: Right lower lobe pneumonia. Follow-up to resolution is recommended. Dictated and Authenticated by: Sriram Hester MD. Orderin Rosaura Dyson MD
== END 2024-06-04 21:35 | disposition home or self-care (01) ==
PROVIDERS: Emergency Provider Emergency Medicine; PCP Family Medicine
DX: J18.9 Pneumonia, unspecified organism (principal); R50.9 Fever, unspecified
CPT/HCPCS: 36415; 80053; 84145; 87040; 87637; 96360; 99284; 71046; 81003; 81015; 83605; 83735; 85025

== ENCOUNTER 2024-06-30 00:22 | Outpatient (CLI) | payer MEDICARE, SELFPAY ==
--- NOTE | 2024-06-30 | DI.CT_ITS ---
Exam(s) CT CHEST WO EXAM: CT CHEST WO CLINICAL HISTORY: CHRONIC COUGH, R05.3 TECHNIQUE: Imaging Protocol: Axial computed tomography images with coronal and sagittal reformatted images were created and reviewed. Computer aided detection (CAD) was utilized. CONTRAST MATERIAL: Intravenous: Omnipaque 350 Contrast volume:structured data ml. COMPARISON: CT CT ABDOMEN PELVIS WO from 12/02/2021 CR XR CHEST 2V PA LATERAL from 12/31/2022 CR XR CHEST 2V PA LATERAL from 04/12/2024 CR,XR XR CHEST 2V PA LATERAL from 06/04/2024 FINDINGS: Pulmonary parenchyma/ tracheobronchial tree: There is bronchial wall thickening and some mucous plugg ing noted within several bronchi of the right middle lobe. There is also some mild wall thickening a nd mucous plugging in the anteromedial right lower lobe. Both of these areas also show increased int erstitial markings and ground-glass infiltrates. The findings appear improved when compared with the previous chest x-rays. There is no visible mass. Mediastinum and Jacqueline: No dominant adenopathy. Pleura: No effusion. No pneumothorax. Heart: The heart is not dilated. Mild coronary artery calcifications are seen. Trace pericardial ef fusion. Aorta: dilatation of the ascending aorta to 4.6 cm. Mild atherosclerotic changes. Pulmonary arteries: Normal diameter. Upper abdomen: No acute findings. Stable liver cysts. Bones: Flowing osteophytes in the thoracic spine. Soft tissues: Unremarkable. IMPRESSION: Right middle lobe and medial intramural right lower lobe infiltrates with bronchial wall thickening a nd mucous plugging. There appears to be some improvement when compared with previous chest x-rays. RADIATION DOSE DELIVERED: 159.53mGy.cm Total DLP DATA REPOSITORY: All CT scans at this facility are submitted to the National Radiology Data Registry (NRDR) Dose Index Registry (DIR) with the [employer] (A[employer]). RADIATION OPTIMIZATION: All CT scans at this facility use at least one of these dose optimization te chniques: automated exposure control; mA and/or kV adjustment per patient size (includes targeted exa ms where dose is matched to clinical indication); or iterative reconstruction.
== END 2024-06-30 00:42 ==
LOC: DI 00:23
PROVIDERS: PCP Family Medicine; Visit Provider Family Medicine
DX: R05.3 Chronic cough (principal); R91.8 Other nonspecific abnormal finding of lung field
CPT/HCPCS: 71250

== ENCOUNTER 2024-07-04 04:11 | Outpatient (CLI) | payer MEDICARE, SELFPAY ==
[2024-07-04] MEDS: Levalbuterol HFA 15 GM INH 4 PUFF IH (11:46)
[2024-07-04] MEDS: Inhaler, Assist Device 1 EACH MC (11:46)
--- NOTE | 2024-07-12 10:32 | W.PFT ---
Date of service: 07/04/24 Time of Service: 10:04 Pulmonary Function Test Result Indications: Chronic cough Interpretation Spirometry: No airflow limitation. No significant bronchodilator response. Decreased MIP and MEP Lung Volumes: There is air trapping Diffusion Capacity: Normal diffusion Airway Pressure: Normal airways resistance Impression There are decreased muscle pressures and air trapping present. Clinical Correlation therefore is recommended.
--- NOTE | 2024-07-12 10:46 | W.PFT ---
Date of service: 07/04/24 Time of Service: 10:04 Pulmonary Function Test Result Indications: Chronic cough Interpretation Spirometry: No airflow limitation. No significant bronchodilator response. Lung Volumes: There is air trapping Diffusion Capacity: Normal diffusion Airway Pressure: Normal airways resistance Impression Air trapping is present. Clinical Correlation therefore is recommended.
== END 2024-07-04 04:12 | disposition home or self-care (01) ==
LOC: RT 04:11
PROVIDERS: PCP Family Medicine; Visit Provider Student in an Organized Health Care Education/Training Program
DX: R05.3 Chronic cough (principal)
CPT/HCPCS: 94060; 94726; 94729

== ENCOUNTER 2024-07-13 18:07 | Inpatient (IN) | payer MEDICARE, SELFPAY ==
[2024-07-13] VITALS (50 sets, daily range): BP systolic 80–109; BP diastolic 44–69; PULSE 74–146; RESP 13–31; TEMP 36.6–37.5; O2SAT 91–97
--- NOTE | 2024-07-13 18:15 | DI.RAD_ITS ---
Exam(s) XR CHEST 2V PA LATERAL EXAM: XR CHEST 2V PA LATERAL CLINICAL HISTORY: cough, fever. TECHNIQUE: 2D digital imaging was performed. COMPARISON: CR XR CHEST 2V PA LATERAL from 04/12/[address] CHEST WO from 06/30/2024 FINDINGS: 2 views: Heart size is normal. The mediastinum is not widened. There is no radiographic improvement in the right lower lung infiltrate which appears to be in the ri ght middle lobe, as seen on recent CT scan. In addition, there is increasing infiltrate in the poste rior basal segment of the left lower lobe. No obvious pleural effusions. IMPRESSION: Bilateral lung base infiltrates in the right middle lobe in left lower lobe, as described above. No obvious pleural effusions. First read by Juan ROBERTSON Radiology Final report concerning bilateral infiltrates was called by myself to ER provider 07/13/2024 at 8:41 p.m. DATA REPOSITORY: RADIATION DOSE DELIVERED:
--- NOTE | 2024-07-13 18:26 | W.ED.GENAD ---
Discharge Plan Discharge Details Chief Complaint: Fever Admit Date/Time: 07/13/24 22:23 Admit Provider: Vel Lazaro Attending Provider: Vel Lazaro Primary Care Provider: Milton Armenta ED Provider: Yenifer Longoria Discharge Data Discharge Date/Time-TO BE ENTERED AT DEPARTURE: 07/13/24 23:24 HPI General Date/Time Provider Initiated Documentation: 07/13/24 18:16. HPI Narrative: Zeke is a 68 year old male who presents to the emergency department today for evaluation of fever up to 102, weakness/fatigue/low energy, diarrhea daily, dysuria, and cough x 4 days. Has been treated for pneumonia multiple times since this winter, recently seen by pulmonology and given albuterol inhaler which has made his cough now productive. Reports he was feeling well during the day (Wednesday) and was able to exercise, but started feeling unwell that night. Has been taking Tylenol for fever. Denies headache, dizziness, new congestion, sore throat, chest pain, difficulty breathing, nausea/vomiting, abdominal pain other than in the right lower quadrant attributed to hernia, blood in stools. Admits to decreased p.o. intake today due to doctors appointments. Past medical history is significant for Parkinson's disease. Physical exam remarkable for soft hernia in right lower quadrant that is tender to palpation. Abdomen is otherwise soft, nondistended, no rigidity or guarding. Easy work of breathing, occasional cough, lung sounds clear bilaterally. Normal heart sounds, tachycardia noted. Tacky mucous membranes. D/dx includes but is not limited to: Pneumonia, occult infection such as UTI, viral illness, dehydration/LOY, electrolyte imbalance. Patient does meet sepsis criteria based on SIRS with hypotension and tachycardia. I independently interpreted the following tests: CBC reassuring. CMP notable for elevated creatinine to BUN ratio (creat 0.8, BUN 19). Mild hypomagnesemia, magnesium 1.7. VBG noted for respiratory alkalosis, pH 7.49 and CO2 36. Lactate reassuring at 1.1. X-ray remarkable for bilateral lung base infiltrates in the right middle and left lower lobe. While in the emergency department, this is protocol initiated with patient receiving 2 L normal saline for rehydration. Unasyn, doxycycline, and vancomycin initiated for likely hospital-acquired/treatment resistant pneumonia. Discussed patient with Dr. Lazaro, hospitalist. Patient to be admitted for pneumonia with sepsis/hypotension. Patient and his are agreeable with plan of care. Related Data Home Medications ?Medication ?Instructions ?Recorded ?Confirmed loratadine 10 mg disintegrating 10 mg PO DAILY 03/30/14 07/13/24 tablet diclofenac potassium 50 mg tablet 50 mg PO TID PRN 03/30/22 07/13/24 folic acid 1 mg tablet 1 mg PO DAILY #90 tabs 07/15/22 07/13/24 carbidopa 25 mg-levodopa 100 mg 1 tab PO TID #270 tabs 10/05/23 07/13/24 tablet (Sinemet) albuterol sulfate 90 mcg/actuation 2 puff inhalation Q4H PRN 07/13/24 07/13/24 aerosol inhaler Previous Rx's ?Medication ?Instructions ?Recorded folic acid 1 mg tablet 1 mg PO DAILY #90 tabs 07/15/22 carbidopa 25 mg-levodopa 100 mg 1 tab PO TID #270 tabs 10/05/23 tablet (Sinemet) Allergies Allergy/AdvReac Type Severity Reaction Status Date / Time metronidazole (From Flagyl) Allergy Intermediate rash Verified 07/13/24 18:18 General Stated Complaint: Fever WILLIAM: 3 Review of Systems Narrative: See HPI Exam Const General: cooperative and frail appearing Nutritional Appearance: thin Orientation: alert and awake Neck Neck: normal visual inspection Resp Effort & Inspection: normal respiratory effort and able to speak in complete sentences Auscultation: clear to auscultation bilaterally and other (Occasional dry cough) Cardio Jugular venous pressure: no JVD Rate: tachycardic Rhythm: regular rhythm GI Inspection: no edema and non-distended Palpation: soft, not firm, no guarding, hernia (RLQ) and not rigid Auscultation: normal bowel sounds Skin General skin exam: no rashes or lesions noted Course Vital Signs Vital signs: Vital Signs Temperature 37.5 C 07/13/24 18:14 Pulse 114 H 07/13/24 18:14 Respiratory Rate 15 07/13/24 18:14 Blood Pressure 84/55 L 07/13/24 18:14 Pulse Oximetry 92 07/13/24 18:14 Temperature 37.5 C 07/13/24 18:18 Temperature Source Oral 07/13/24 18:18 Pulse 114 H 07/13/24 18:18 Respiratory Rate 15 07/13/24 18:18 Blood Pressure 84/55 L 07/13/24 18:18 Blood Pressure Position Sitting 07/13/24 18:18 Pulse Oximetry 92 07/13/24 18:18 Oxygen Delivery Method Room Air 07/13/24 18:18 Oxygen Flow Rate 0 07/13/24 18:18 Pain Level 1 07/13/24 18:18 Medical Decision Making Imaging Data Radiologic Study: Radiologist's impression: Exam(s) XR CHEST 2V PA LATERAL EXAM: XR CHEST 2V PA LATERAL CLINICAL HISTORY: cough, fever. TECHNIQUE: 2D digital imaging was performed. COMPARISON: CR XR CHEST 2V PA LATERAL from 04/12/[address] CHEST WO from 06/30/2024 FINDINGS: 2 views: Heart size is normal. The mediastinum is not widened. There is no radiographic improvement in the right lower lung infiltrate which appears to be in the right middle lobe, as seen on recent CT scan. In addition, there is increasing infiltrate in the posterior basal segment of the left lower lobe. No obvious pleural effusions. IMPRESSION: Bilateral lung base infiltrates in the right middle lobe in left lower lobe, as described above. No obvious pleural effusions. Quality:SDOH Health Related Social Needs: No Data to Display PFSH All Active Problems (Updated 07/13/24 @ 22:42 by Vel Lazaro) Hypomagnesemia (Acute) Hypotension (Acute) Pneumonia (Acute) Sepsis (Acute) Dysphagia (Acute) Nuclear sclerotic cataract of left eye (Acute) Posterior subcapsular age-related cataract of left eye (Acute) ETOH abuse (Chronic) Parkinson disease (Chronic) Medical History Constipation Cataract History of tobacco abuse Allergic rhinitis Generalized anxiety disorder History of proctitis Shoulder pain, right Bradykinesia Chronic low back pain Hearing loss Night sweats Parkinsons Environmental allergies Proctitis Anxiety Surgical History History of cataract surgery S/P scrotal varicocelectomy Spermatocele 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
[2024-07-13 18:36] LABS: BE (Venous) 4 mmol/L (-2-3); HCO3 (Venous) 28 mmol/L (23-28); Lactate 1.1 mmol/L (<or=2.0); O2 Sat (Venous) 94 %; TCO2 (Venous) 24 mmol/L (24-29); pCO2 (Venous) 36 mmHg (41-51); pH (Venous) 7.49 (7.31-7.41); pO2 (Venous) 61 mmHg
[2024-07-13 18:37] LABS: Abs Immature Grans 0.03 10^3/uL (0.0-0.06); Absolute Basophil Count 0.02 10^3/uL (0.0-0.2); Absolute Lymphocyte Count 0.54 10^3/uL (1.2-3.4); Absolute Monocyte Count 0.31 10^3/uL (0.1-0.8); Absolute Neutrophil Count 6.14 10^3/uL (1.2-6.7); Basophils % 0.3 %; HCT 43.8 % (40.0-50.0); HGB 15.1 g/dL (13.5-17.5); Immature Grans % 0.4 %; Lymphocytes % 7.7 %; MCH 31.1 pg (27.0-33.0); MCHC 34.5 % (32.0-36.0); MCV 90 fL (80-95); MPV 8.9 fL (8.0-11.0); Monocytes % 4.4 %; Neutrophils % 87.2 %; Platelet Count 216 10^3/uL (130-400); RBC 4.85 10^6/uL (4.36-5.78); RDW 13.1 % (11.8-14.1); RDW-SD 42.9 fL; WBC 7.04 10^3/uL (4.4-10.8)
[2024-07-13] MEDS: Normal Saline 1,000 ML 2000 ML IV (18:52)
[2024-07-13 18:55] LABS: ALT 19 U/L (16-63); AST 21 U/L (15-37); Albumin 3.5 g/dL (3.4-5.0); Alkaline Phosphatase 53 U/L (46-116); Anion Gap 7.4 mmol/L (3-11); BUN 19 mg/dL (7-18); Bilirubin, Total 0.8 mg/dL (0.2-1.0); CO2 27.6 mmol/L (21.0-32.0); CREATININE 0.8 mg/dL (0.70-1.30); Calcium 8.8 mg/dL (8.5-10.1); Chloride 99 mmol/L (98-107); Glucose 122 mg/dL (74-106); Magnesium 1.7 mg/dL (1.8-2.4); Potassium 3.9 mmol/L (3.5-5.1); Sodium 134 mmol/L (136-145); Total Protein 7.3 g/dL (6.4-8.2)
--- NOTE | 2024-07-13 19:25 | DI.VRAD_ITS ---
PROCEDURE INFORMATION: Exam: XR Chest Exam date and time: 07/13/2024 7:04 PM Age: 68 years old Clinical indication: Cough and fever TECHNIQUE: Imaging protocol: Radiologic exam of the chest. Views: 2 views. COMPARISON: CT CHEST WO 06/30/2024 3:21 PM FINDINGS: Lungs: Bilateral lower lobe infiltrates consistent with bilateral lower lobe pneumonia. 1. Bilateral lower lobe pneumonia. Pleural spaces: Unremarkable. No pleural effusion. No pneumothorax. Heart/Mediastinum: Unremarkable. No cardiomegaly. Bones/joints: Unremarkable. IMPRESSION: No acute findings. Dictated and Authenticated by: Sriram Hester MD. Orderin Antoine Street MD
[2024-07-13] MEDS: Normal Saline 1,000 ML 1000 ML IV (20:12)
[2024-07-13] MEDS: Lidocaine 2% Jelly 6 ML SYR (20:29)
[2024-07-13] MEDS: DOXYCYCLINE 100 MG in Normal Saline 100 ML IVPB (20:46)
[2024-07-13 21:00] LABS: Bilirubin Small (Negative); Blood Negative (Negative); Clarity Clear (Clear); Glucose Negative (Negative); Ketones Trace mg/dL (Negative); Leukocyte Esterase Negative (Negative); Nitrite Negative (Negative); Specific Gravity >= 1.030 (1.005-1.025); Urobilinogen 0.2 mg/dL (Up to 0.2); pH 5.5 (5-8)
[2024-07-13 21:07] LABS: COVID-19 PCR Negative (Negative); Influenza A PCR Negative (Negative); Influenza B PCR Negative (Negative); RSV PCR Negative (Negative)
[2024-07-13 21:07] LABS: Bacteria Negative HPF (Negative); C & S Indicated? No; Casts 0-2 Hyaline LPF (Negative); Crystals Negative HPF (Negative); Epithelial Cells Rare HPF (Negative); Mucus Heavy (Negative); Other Cells Rare Transitional (Negative); RBC 0-2 HPF (0-2); WBC 0-2 HPF (0-5)
[2024-07-13 21:08] LABS: Source Nasopharynx
[2024-07-13] MEDS: AMPICILLIN/SULBACTAM 3 GM in Normal Saline 100 ML IVPB (21:08)
--- NOTE | 2024-07-13 22:05 | W.PM.HP.N ---
Date of service: 07/13/24 Time of Service: 22:06 Assessment and Plan Assessment and plan (1) Sepsis: Start date: 07/13/24 Status: Acute Assessment and plan: This is a 68-year-old gentleman who presents with fever and early sepsis with transient hypotension but no septic shock. The source appears to be pulmonary. He was having urinary symptoms and UA was unrevealing but culture should be followed up. He is responding to IV fluid resuscitation was initiated on Unasyn with vancomycin for probable persistent pneumonia secondary to some aspiration. This may be solid extubation and patient will be reevaluated speech therapy prior to advancing diet and taking his medications though he denied overt choking recently. Patient will be placed in ICU because of hypotensive episode and sepsis. Follow-up cultures and adjust antibiotic therapy accordingly with patient stable in the ICU after admission. Trend lab. He is a full code. (2) Pneumonia: Status: Acute Assessment and plan: IV Unasyn with possible recurrent aspiration with his Parkinson's disease. Vancomycin because of presentation with sepsis and to cover hospital-acquired pneumonia with patient recent hospitalized with pneumonia which is not clearing. Pulmonary toilet. (3) Hypotension: Start date: 07/13/24 Status: Acute Assessment and plan: Brief the patient responded to IV fluid resuscitation for sepsis. Monitored in the ICU. (4) Hypomagnesemia: Start date: 07/13/24 Status: Acute Assessment and plan: Replete IV and follow-up lab with further repletion if needed. (5) Parkinson disease: Status: Chronic Assessment and plan: Continue outpatient medical therapy. Patient is doing well overall with treatment though he appears to be having progressive disease with swallowing difficulties. History of Present Illness History of Present Illness Chief Complaint: Fever with weakness and fatigue having cough for 4 days, diarrhea/dysuria Narrative: This is a 68-year-old male patient who has Parkinson disease with dyskinesia on treatment who has swallowing difficulty in the past and had diagnoses of dysphagia being evaluated by speech therapy with thins and swallow evaluation. He is on modified techniques to avoid aspiration. Diet he did have a pneumonia treated earlier this year and now appears to be have recurring respiratory symptoms and fever with GI and symptoms. He does have diarrhea daily and dysuria by history. He denies any hematuria. He does have slight right lower abdominal discomfort which he states is from the chronic hernia. He has had no blood in his stool. He has had no nausea or vomiting. Evaluation in ED did reveal sepsis syndrome with fever at home, mild tachypnea but normal WBC, negative UA with culture performed, normal lactate and anion gap with low magnesium being repleted, and transient hypotension with systolic blood pressure and MAP dropping below 65. He did respond well to IV fluid resuscitation and was initiated on IV antibiotic therapy for hospital-acquired pneumonia with recurrent pneumonia recently. He was hospitalized for pneumonia as stated. He did receive Unasyn. Question of aspiration though the patient states that he has not aspirated as far as his symptoms and recent evaluation helping to avoid this. He is slightly euphoric during our conversation. He was admitted to the ICU because of his transient hypotension with concern for sepsis with shock. He will continue with IV fluid resuscitation not requiring pressors IV antibiotic therapy with Unasyn and vancomycin. He is a full code. Review of Systems Narrative: 13 point review of systems otherwise unrevealing or stable. He is having some hip pain because of immobilization in bed with his evaluation and does have a history of low back pain. This appears to be positional. Patient otherwise minimizes his symptoms. PFSH All Active Problems Hypomagnesemia (Acute) Hypotension (Acute) Pneumonia (Acute) Sepsis (Acute) Dysphagia (Acute) Nuclear sclerotic cataract of left eye (Acute) Posterior subcapsular age-related cataract of left eye (Acute) ETOH abuse (Chronic) Parkinson disease (Chronic) Medical History Constipation Cataract History of tobacco abuse Allergic rhinitis Generalized anxiety disorder History of proctitis Shoulder pain, right Bradykinesia Chronic low back pain Hearing loss Night sweats Parkinsons Environmental allergies Proctitis Anxiety Surgical History History of cataract surgery S/P scrotal varicocelectomy Spermatocele 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 Pets and animals: Yes Pets and animals: dog(s) Do you feel safe at home: Yes Do you feel safe in your relationship?: Yes Meds Allergies and Home Medications Allergies Allergy/AdvReac Type Severity Reaction Status Date / Time metronidazole (From Flagyl) Allergy Intermediate rash Verified 07/13/24 18:18 Home Medications ?Medication ?Instructions ?Recorded ?Confirmed ?Type loratadine 10 mg disintegrating 10 mg PO DAILY 03/30/14 07/13/24 History tablet diclofenac potassium 50 mg tablet 50 mg PO TID PRN 03/30/22 07/13/24 History folic acid 1 mg tablet 1 mg PO DAILY #90 tabs 07/15/22 07/13/24 Rx carbidopa 25 mg-levodopa 100 mg 1 tab PO TID #270 tabs 10/05/23 07/13/24 Rx tablet (Sinemet) albuterol sulfate 90 mcg/actuation 2 puff inhalation Q4H PRN 07/13/24 07/13/24 History aerosol inhaler Exam Narrative Exam Narrative: General: Patient appears appropriate but chronically ill, alert and oriented x 3 and in no acute distress lying in bed. HEENT: Normocephalic with coarsened facial features and masklike facies. Eyes with pupils equal and react to light symmetrically, extraocular movement intact and sclera anicteric. Oropharynx with dry mucosa fair dentition. Neck: Supple without JVD. Back: Kyphotic without CVA tenderness. Lungs: Decreased aeration both bases with occasional coarse crackle but no focalizing rales. No rhonchi. Bronchovesicular breath sounds diffusely. Heart: Regular rate and rhythm with no murmurs or gallops appreciated. Abdomen: Normal contour but slightly scaphoid, soft to palpation with no focalizing tenderness or guarding. No rebound. No palpable hepatosplenomegaly. Bowel sounds positive in all quadrants. Genital/rectal: Exam deferred. Extremities: Without clubbing, cyanosis or grossly pitting edema.. Capillary refill. Skin: Normal color, moist, warm to touch with actinic changes over sun exposed areas. Neuro: Cranial nerves II to XII gross intact, increased muscle tone with masklike facies but no tremor noted. No focalizing motor deficits. Psych: Slightly euphoric but not anxious and normal mood. No abnormal thought processes. Remote and recent memory intact. Results Imaging Imaging Studies: EXAM: XR CHEST 2V PA LATERAL Date of exam: 07/13/2024 CLINICAL HISTORY: cough, fever. TECHNIQUE: 2D digital imaging was performed. COMPARISON: CR XR CHEST 2V PA LATERAL from 04/12/[address] CHEST WO from 06/30/2024 FINDINGS: 2 views: Heart size is normal. The mediastinum is not widened. There is no radiographic improvement in the right lower lung infiltrate which appears to be in the right middle lobe, as seen on recent CT scan. In addition, there is increasing infiltrate in the posterior basal segment of the left lower lobe. No obvious pleural effusions. IMPRESSION: Bilateral lung base infiltrates in the right middle lobe in left lower lobe, as described above. No obvious pleural effusions. Labs 07/14/24 05:35 07/14/24 05:35 Labs: Laboratory Results - last 24 hr 07/13/24 07/13/24 07/13/24 18:30 20:27 20:53 WBC 7.04 RBC 4.85 Hgb 15.1 Hct 43.8 MCV 90 MCH 31.1 MCHC 34.5 RDW 13.1 Plt Count 216 MPV 8.9 Immature Gran % 0.4 Neutrophils % 87.2 Lymphocytes % 7.7 Monocytes % 4.4 Eosinophils % 0.0 Basophils % 0.3 Nucleated RBC % 0.0 Absolute Neutrophils 6.14 Absolute Lymphocytes 0.54 L Absolute Monocytes 0.31 Absolute Eosinophils 0.00 Absolute Basophils 0.02 VBG pH 7.49 H VBG pCO2 36 L VBG pO2 61 VBG HCO3 28 VBG Total CO2 24 VBG O2 Saturation 94 VBG Base Excess 4 H VBG Lactate 1.1 Sodium 134 L Potassium 3.9 Chloride 99 Carbon Dioxide 27.6 Anion Gap 7.4 BUN 19 H Creatinine 0.8 Est GFR (CKD-EPI 2020) 97.00 Glucose 122 H Calcium 8.8 Magnesium 1.7 L Total Bilirubin 0.8 AST 21 ALT 19 Alkaline Phosphatase 53 Total Protein 7.3 Albumin 3.5 Urine Color Yellow Urine Clarity Clear Urine pH 5.5 Ur Specific [place] >= 1.030 H Urine Protein 100 H Urine Ketones Trace H Urine Blood Negative Urine Nitrite Negative Urine Bilirubin Small H Urine Urobilinogen 0.2 Ur Leukocyte Esterase Negative Urine RBC 0-2 Urine WBC 0-2 Ur Epithelial Cells Rare Urine Crystals Negative Urine Bacteria Negative Urine Casts 0-2 Hyaline Urine Mucus Heavy Urine Other Rare Transitional Ur Culture Indicated? No Urine Glucose Negative COVID-19 Source Nasopharynx SARS-CoV-2 (PCR) Negative Influenza Type A (PCR) Negative Influenza Type B (PCR) Negative RSV (PCR) Negative Last Vital Signs Temp 36.6 C 07/13/24 21:10 Pulse 85 07/13/24 21:10 Resp 24 07/13/24 21:10 BP 102/67 07/13/24 21:00 Pulse Ox 96 07/13/24 21:10 Time Spent Time spent with Patient: >75 minutes Time was spent: preparing to see the patient(eg.review tests), obtaining and/or reviewing separately otained hiistory, ordering medications,tests, procedures, referring, communicating with other health hourly caregiver, indepentently interpreting results and care coordination
--- NOTE | 2024-07-13 23:01 | W.PC.ACHO ---
Registration Status: Primary Language: Preferred Language: ED Information & Data Chief Complaint Fever 07/13/24 18:50 Triage Note Pt reports fevers 102 over 07/13/24 18:14 the past 4 days- hx of pneumonia- does come down with Apap- last does of Apap at [facility] just prior to arrival , persistent cough that has been present since the pneumonia Medical / Surgical History (Last Reviewed 07/13/24 @ 22:06 by Vel Lazaro) Constipation Cataract History of tobacco abuse Allergic rhinitis Generalized anxiety disorder History of proctitis Shoulder pain, right Bradykinesia Chronic low back pain Hearing loss Night sweats Parkinsons Environmental allergies Proctitis Anxiety (Last Reviewed 07/13/24 @ 22:06 by Vel Lazaro) History of cataract surgery S/P scrotal varicocelectomy Spermatocele AVM (arteriovenous malformation) Colonoscopy - IV Sedation Most Recent Vital Signs Temperature 36.6 C 07/13/24 21:10 Temperature Source Oral 07/13/24 18:18 Pulse 90 07/13/24 22:40 Pulse 88 07/13/24 22:40 Respiratory Rate 26 H 07/13/24 22:40 Blood Pressure 99/57 L 07/13/24 22:30 Blood Pressure Mean 69 07/13/24 22:30 Blood Pressure Position Sitting 07/13/24 18:18 Pulse Oximetry 94 07/13/24 22:40 Oxygen Delivery Method Room Air 07/13/24 18:18 Oxygen Flow Rate 0 07/13/24 18:18 Pain Level 1 07/13/24 18:18 Allergies metronidazole (From Flagyl) Allergy (Intermediate, Verified 07/13/24 18:18) rash Precautions Isolation Standard precaution 07/13/24 18:17 IV IV Catheter Type [Right Saline Lock Forearm] IV Catheter Gauge [Right 20 Forearm] Diagnostics 07/13/24 07/13/24 07/13/24 Range/Units 20:53 20:27 18:30 WBC 7.04 (4.4-10.8) 10^3/uL RBC 4.85 (4.36-5.78) 10^6/uL Hgb 15.1 (13.5-17.5) g/dL Hct 43.8 (40.0-50.0) % MCV 90 (80-95) fL MCH 31.1 (27.0-33.0) pg MCHC 34.5 (32.0-36.0) % RDW 13.1 (11.8-14.1) % Plt Count 216 (130-400) 10^3/uL MPV 8.9 (8.0-11.0) fL Immature Gran % 0.4 % Neutrophils % 87.2 % Lymphocytes % 7.7 % Monocytes % 4.4 % Eosinophils % 0.0 % Basophils % 0.3 % Nucleated RBC % 0.0 (0.0-0.3) % Absolute Neutrophils 6.14 (1.2-6.7) 10^3/uL Absolute Lymphocytes 0.54 L (1.2-3.4) 10^3/uL Absolute Monocytes 0.31 (0.1-0.8) 10^3/uL Absolute Eosinophils 0.00 (0.0-0.7) 10^3/uL Absolute Basophils 0.02 (0.0-0.2) 10^3/uL VBG pH 7.49 H (7.31-7.41) VBG pCO2 36 L (41-51) mmHg VBG pO2 61 mmHg VBG HCO3 28 (23-28) mmol/L VBG Total CO2 24 (24-29) mmol/L VBG O2 Saturation 94 % VBG Base Excess 4 H (-2-3) mmol/L VBG Lactate 1.1 (<or=2.0) mmol/L Sodium 134 L (136-145) mmol/L Potassium 3.9 (3.5-5.1) mmol/L Chloride 99 (98-107) mmol/L Carbon Dioxide 27.6 (21.0-32.0) mmol/L Anion Gap 7.4 (3-11) mmol/L BUN 19 H (7-18) mg/dL Creatinine 0.8 (0.70-1.30) mg/dL Est GFR (CKD-EPI 2020) 97.00 (mL/min/1.73m2) Glucose 122 H (74-106) mg/dL Calcium 8.8 (8.5-10.1) mg/dL Magnesium 1.7 L (1.8-2.4) mg/dL Total Bilirubin 0.8 (0.2-1.0) mg/dL AST 21 (15-37) U/L ALT 19 (16-63) U/L Alkaline Phosphatase 53 (46-116) U/L Total Protein 7.3 (6.4-8.2) g/dL Albumin 3.5 (3.4-5.0) g/dL Urine Color Yellow (Yellow) Urine Clarity Clear (Clear) Urine pH 5.5 (5-8) Ur Specific [place] >= 1.030 H (1.005-1.025) Urine Protein 100 H (Neg-Trace) mg/dL Urine Ketones Trace H (Negative) mg/dL Urine Blood Negative (Negative) Urine Nitrite Negative (Negative) Urine Bilirubin Small H (Negative) Urine Urobilinogen 0.2 (Up to 0.2) mg/dL Ur Leukocyte Esterase Negative (Negative) Urine RBC 0-2 (0-2) HPF Urine WBC 0-2 (0-5) HPF Ur Epithelial Cells Rare (Negative) HPF Urine Crystals Negative (Negative) HPF Urine Bacteria Negative (Negative) HPF Urine Casts 0-2 Hyaline (Negative) LPF Urine Mucus Heavy (Negative) Urine Other Rare Transitional (Negative) Ur Culture Indicated? No Urine Glucose Negative (Negative) mg/dL COVID-19 Source Nasopharynx SARS-CoV-2 (PCR) Negative (Negative) Influenza Type A (PCR) Negative (Negative) Influenza Type B (PCR) Negative (Negative) RSV (PCR) Negative (Negative) 07/13/24 18:30 Blood Culture - Pending Blood 07/13/24 18:25 Blood Culture - Pending Blood Intake and Output - 24 Hour Total 07/13/24 18:07 thru 07/13/24 21:46 Intake Total 2100 Output Total 125 Balance 1975 Weight 70.307 kg Intake: IV 2100 Output: Urine 125 Other: Urine Color Light [place] Urine Appearance Clear Urinary Catheter Urinary Catheter Date of 07/13/24 Insertion [Urethral (Nascimento)] Time of insertion [Urethral ( 20:41 Nascimento)] Falls Risk Assessment History of Falls No History 07/13/24 18:21 Contributing Factors Impairments 07/13/24 18:21 Ambulatory Aids Uses ambulatory device 07/13/24 18:21 Tubes/Lines W/no contributing factors 07/13/24 18:21 Gait Evaluation W/any additional score 07/13/24 18:21 Cognition No cognitive impairment 07/13/24 18:21 Fall Total Score 48 07/13/24 18:21 Level of Risk Moderate Risk 07/13/24 18:21 Problems (Last Reviewed 07/13/24 @ 22:06 by Vel Lazaro) Hypomagnesemia (Acute) Hypotension (Acute) Pneumonia (Acute) Sepsis (Acute) Parkinson disease (Chronic) v v v v v v v v v Sending and/or Receiving Nurses: Please use comment section below to note any information pertinent to the patient hand-off not included above. Information / Comments: Report received from: Butch
[2024-07-13] MEDS: Normal Saline 1,000 ML 125 ML IV (23:38)
[2024-07-13] MEDS: MAGNESIUM SULFATE 2 GM/50 ML BAG IV_INF (23:39)
[2024-07-13] MEDS: Normal Saline Flush 10 ML SYR IVP (23:48)
[2024-07-14] VITALS (37 sets, daily range): BP systolic 97–133; BP diastolic 58–76; PULSE 71–114; RESP 19–37; TEMP 37.6–39.2; O2SAT 90–97
[2024-07-14] MEDS: AMPICILLIN/SULBACTAM 3 GM in Normal Saline 100 ML IVPB ×3 (02:11→13:59)
[2024-07-14] MEDS: Acetaminophen 325 MG TAB PO ×4 (03:57→20:11)
[2024-07-14] MEDS: VANCOMYCIN 1,000 MG in Normal Saline 250 ML 166.667 MG IVPB (04:39)
[2024-07-14 05:56] LABS: HGB 12.4 g/dL (13.5-17.5); MCH 30.8 pg (27.0-33.0); MCHC 33.5 % (32.0-36.0); MCV 92 fL (80-95); Platelet Count 146 10^3/uL (130-400); RBC 4.02 10^6/uL (4.36-5.78); RDW 13.2 % (11.8-14.1); WBC 3.85 10^3/uL (4.4-10.8)
[2024-07-14] MEDS: DOXYCYCLINE 100 MG in Normal Saline 100 ML IVPB ×2 (06:08→18:08)
[2024-07-14 06:17] LABS: ALT 17 U/L (16-63); AST 24 U/L (15-37); Albumin 2.6 g/dL (3.4-5.0); Alkaline Phosphatase 41 U/L (46-116); Anion Gap 8.5 mmol/L (3-11); BUN 14 mg/dL (7-18); Bilirubin, Total 0.6 mg/dL (0.2-1.0); CO2 25.5 mmol/L (21.0-32.0); CREATININE 0.6 mg/dL (0.70-1.30); Calcium 7.8 mg/dL (8.5-10.1); Chloride 104 mmol/L (98-107); Glucose 94 mg/dL (74-106); Potassium 3.6 mmol/L (3.5-5.1); Sodium 138 mmol/L (136-145); Total Protein 5.5 g/dL (6.4-8.2)
[2024-07-14 06:23] LABS: TSH 1.11 uIU/mL (0.36-3.74)
--- NOTE | 2024-07-14 08:44 | INITIAL_ITS ---
Date of service: 07/14/24 Time of Service: 08:44 Care Management Initial Assmt Initial Assessment Reason for Hospitalization: sepsis and pneumonia Functional Status/Living Situation Patient Presentation: Zeke was sitting up in bed visiting with his friend Colette, with whom he lives, when CM met with him. He was agreeable to conversation and engaged well with CM. Zeke was diagnosed with Parkinson's Disease 6 years ago. He shared that he has done very well and is on the same dose of medication he was started on when first diagnosed. He works out in a gym regularly and does not need to use a cane or walker. Zeke is independent at baseline and does not receive any services. 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 During the conversation, Zeke shared that he currently has 7 dogs. Two of his dogs are indoor pets, the other 5 are retired sled dogs that he raised as pups. 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 The ones he has now are all 13-14 years old. Zeke was admitted with pneumonia and sepsis. He was tachycardic and hypotensive on admission but has stabilized. His HR has been in the 80s to 90s all day and his SBP has been >100. Zeke has been febrile however with a T-max of 39.1. Blood and urine cultures were obtained and are negative to date. CM will follow. 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) Instrumental Activities of Daily Living (ADLs): Independent Activities/Hobbies/SocialSupport: raced sled dogs Medications Medication Management: No Issues/Barriers identified Advance Directives Advance Directives: Do you have an Advance Directive: Y 04/27/18 15:11 AD On File at [facility]: N 04/27/18 15:11 Date Asked 07/13/24 07/13/24 18:35 AD Date Reviewed COLST On File at [facility] COLST Date Scanned Code Status Resuscitation Status Full Code Portal Pt does not currently have a portal and education provided: Yes Insurance Coverage/Financial Issues Insurance: /BS Medicare Advantage Care Team Visit Care Team Role Provider Type Milton Armenta MD Primary Care Provider NON-[facility] STAFF PHYSICIAN Amparo Castillo, BLOWN FILM EXTRUSION OPERATOR Other Providers SPEECH LANGUAGE PATHOLOGIST Dayna Contreras, BLOWN FILM EXTRUSION OPERATOR Other Providers SPEECH LANGUAGE PATHOLOGIST Joan Delaney Other Providers SPEECH LANGUAGE PATHOLOGIST Yasmin Cordero, BLOWN FILM EXTRUSION OPERATOR Other Providers SPEECH LANGUAGE PATHOLOGIST Keli Vazquez, BLOWN FILM EXTRUSION OPERATOR Other Providers SPEECH LANGUAGE PATHOLOGIST Yenifer Bruce Emergency Provider NURSE PRACTITIONER Vel Lazaro Admit Provider NON-[facility] STAFF PHYSICIAN Attending Provider Discharge Potential Discharge Needs: PCP F/U Appt Anticipated Barriers to Discharge: None Identified Patient/Family Education Needs: Review discharge instructions, discuss Ask Me Three Transportation: Private vehicle Plan: Anticipate Zeke will be discharged home with no new services when medically cleared. He will follow up with his community providers and plan of care and transport with a friend. CM will follow and continue to assess for discharge needs. Social Determinants of Health Screening Social Determinants of health last assessed in clinic: 07/14/24 Will the Patient Participate in the Screening?: Yes Do you worry about having a steady place to live?: no Problems where you live: no known problems In the past 12 months, have you had to go without electric, gas, oil or water in your home?: no 1. Within the past 12 months, we worried whether our food would run out before we got money to buy more.: Never true 2. Within the past 12 months, the food we bought just didn't last and we didn't have money to get more.: Never true Has lack of transportation kept you from medical appointments or from doing things needed for daily living?: no Has anyone in your life made you feel unsafe or unsupported?: no How hard is it for you to pay for the very basics like food, housing, medical care, and heating? Would you say it is:: Not hard at all Do you want help finding or keeping work or a job?: I do not need or want help If for any reason you need help with day-to-day activities such as bathing, preparing meals, shopping, managing finances, etc., do you get the help you need?: I don?t need any help How often do you feel lonely or isolated from those around you?: Never Do you speak a language other than German at home?: Yes Health Related Social Needs Health related social needs: education (Z55.6) Health related social needs details: no needs PFSH All Active Problems (Updated 07/14/24 @ 12:41 by Rafa Cruz) Anemia (Chronic) Hypomagnesemia (Acute) Hypotension (Acute) Pneumonia (Acute) Sepsis (Acute) Dysphagia (Acute) Nuclear sclerotic cataract of left eye (Acute) Posterior subcapsular age-related cataract of left eye (Acute) ETOH abuse (Chronic) Parkinson disease (Chronic) Medical History Constipation Cataract History of tobacco abuse Allergic rhinitis Generalized anxiety disorder History of proctitis Shoulder pain, right Bradykinesia Chronic low back pain Hearing loss Night sweats Parkinsons Environmental allergies Proctitis Anxiety Surgical History History of cataract surgery S/P scrotal varicocelectomy Spermatocele 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
[2024-07-14] MEDS: Carbidopa 25/Levodopa 100 TAB PO ×3 (08:45→16:22)
[2024-07-14] MEDS: Enoxaparin 40 MG/0.4 ML SYR SC (08:46)
[2024-07-14] MEDS: Loratidine 10 MG TAB PO (08:46)
[2024-07-14] MEDS: Folic Acid 1 MG TAB PO (08:46)
[2024-07-14] MEDS: Normal Saline Flush 10 ML SYR IVP ×2 (08:47→19:31)
[2024-07-14] MEDS: Normal Saline 1,000 ML 125 ML IV (10:51)
--- NOTE | 2024-07-14 12:28 | PGE_ITS ---
Date of Service Date of service: 07/14/24 Time of Service: 12:28 Assessment and Plan Assessment and plan (1) Sepsis: Start date: 07/13/24 Status: Acute Assessment and plan: Met criteria on admission with fever, elevated RR/HR and source appears to be pulmonary. Was breifly hypotensive but responded to IV fluid resuscitation and was initiated on Unasyn with vancomycin for pneumonia, continue this. Continue to monitor, can downgrade to MS floor from ICU if remains stable this afternoon. (2) Pneumonia: Status: Acute Assessment and plan: IV Unasyn with possible recurrent aspiration, doxycycline to cover atypicals. Vancomycin because of presentation with sepsis and recent healthcare exposure. If improving and blood cultures negative get MRSA nares and stop vanco 07/15. Pulmonary toilet. (3) Hypomagnesemia: Start date: 07/13/24 Status: Acute Assessment and plan: Repleted IV, follow 07/15 (4) Parkinson disease: Status: Chronic Assessment and plan: Continue outpatient medical therapy. Patient is doing well overall with treatment though he appears to be having progressive disease with swallowing difficulties. GEODESY TEACHER pending as above. (5) Anemia: Status: Chronic Assessment and plan: h/h dropped with hydration. Follow. No signs of bleeding noted. Subjective Subjective Patient reports: voiding w/o difficulty and shortness of breath; denies diarrhea , vomiting or fever Interval history since last seen: Events: Admitted to ICU on Amp/Sulbactam and vancomycin He still feels feverish, generally weak, but a little better. Coughing. He is eating little. His left hip/back hurts but this is not new. Exam Narrative Exam Narrative: General: Patient appears thin fatigued but able to sit up, chronically ill, alert and oriented x 3 and in no acute distress. Lungs: Decreased aeration both bases with crackles left base. Bronchovesicular breath sounds diffusely. Heart: Regular rate and rhythm with no murmurs or gallops appreciated. Abdomen: Normal contour but slightly scaphoid, soft to palpation with no focalizing tenderness or guarding. No rebound. No palpable hepatosplenomegaly. Bowel sounds positive in all quadrants. Extremities: Without clubbing, cyanosis or grossly pitting edema.. Capillary refill. Objective Last Vital Signs Temp 37.7 C H 07/14/24 10:27 Pulse 87 07/14/24 10:01 Resp 21 07/14/24 10:01 BP 107/70 07/14/24 10:01 Pulse Ox 97 07/14/24 10:01 Laboratory Results - last 24 hr 07/13/24 07/13/24 07/13/24 18:30 20:27 20:53 WBC 7.04 RBC 4.85 Hgb 15.1 Hct 43.8 MCV 90 MCH 31.1 MCHC 34.5 RDW 13.1 Plt Count 216 MPV 8.9 Immature Gran % 0.4 Neutrophils % 87.2 Lymphocytes % 7.7 Monocytes % 4.4 Eosinophils % 0.0 Basophils % 0.3 Nucleated RBC % 0.0 Absolute Neutrophils 6.14 Absolute Lymphocytes 0.54 L Absolute Monocytes 0.31 Absolute Eosinophils 0.00 Absolute Basophils 0.02 VBG pH 7.49 H VBG pCO2 36 L VBG pO2 61 VBG HCO3 28 VBG Total CO2 24 VBG O2 Saturation 94 VBG Base Excess 4 H VBG Lactate 1.1 Sodium 134 L Potassium 3.9 Chloride 99 Carbon Dioxide 27.6 Anion Gap 7.4 BUN 19 H Creatinine 0.8 Est GFR (CKD-EPI 2020) 97.00 Glucose 122 H Calcium 8.8 Magnesium 1.7 L Total Bilirubin 0.8 AST 21 ALT 19 Alkaline Phosphatase 53 Total Protein 7.3 Albumin 3.5 TSH Urine Color Yellow Urine Clarity Clear Urine pH 5.5 Ur Specific [place] >= 1.030 H Urine Protein 100 H Urine Ketones Trace H Urine Blood Negative Urine Nitrite Negative Urine Bilirubin Small H Urine Urobilinogen 0.2 Ur Leukocyte Esterase Negative Urine RBC 0-2 Urine WBC 0-2 Ur Epithelial Cells Rare Urine Crystals Negative Urine Bacteria Negative Urine Casts 0-2 Hyaline Urine Mucus Heavy Urine Other Rare Transitional Ur Culture Indicated? No Urine Glucose Negative COVID-19 Source Nasopharynx SARS-CoV-2 (PCR) Negative Influenza Type A (PCR) Negative Influenza Type B (PCR) Negative RSV (PCR) Negative 07/14/24 05:35 WBC 3.85 L RBC 4.02 L Hgb 12.4 L D Hct 37.0 L MCV 92 MCH 30.8 MCHC 33.5 RDW 13.2 Plt Count 146 MPV 9.0 Immature Gran % Neutrophils % Lymphocytes % Monocytes % Eosinophils % Basophils % Nucleated RBC % Absolute Neutrophils Absolute Lymphocytes Absolute Monocytes Absolute Eosinophils Absolute Basophils VBG pH VBG pCO2 VBG pO2 VBG HCO3 VBG Total CO2 VBG O2 Saturation VBG Base Excess VBG Lactate Sodium 138 Potassium 3.6 Chloride 104 Carbon Dioxide 25.5 Anion Gap 8.5 BUN 14 Creatinine 0.6 L Est GFR (CKD-EPI 2020) 105.80 Glucose 94 Calcium 7.8 L Magnesium Total Bilirubin 0.6 AST 24 ALT 17 Alkaline Phosphatase 41 L Total Protein 5.5 L Albumin 2.6 L TSH 1.11 Urine Color Urine Clarity Urine pH Ur Specific [place] Urine Protein Urine Ketones Urine Blood Urine Nitrite Urine Bilirubin Urine Urobilinogen Ur Leukocyte Esterase Urine RBC Urine WBC Ur Epithelial Cells Urine Crystals Urine Bacteria Urine Casts Urine Mucus Urine Other Ur Culture Indicated? Urine Glucose COVID-19 Source SARS-CoV-2 (PCR) Influenza Type A (PCR) Influenza Type B (PCR) RSV (PCR) Time Spent with Patient Time Spent with Patient: >50 minutes Time was spent: preparing to see the patient(eg.review tests), obtaining and/or reviewing separately otained hiistory, ordering medications,tests, procedures, referring, communicating with other health long term acute care registered nurse, indepentently interpreting results, counseling the patient and care coordination
--- NOTE | 2024-07-14 13:36 | SP_ITS ---
Date of service: 07/14/24 Time of Service: 12:45 Subjective Clinical (Bedside) Swallow Evaluation - Inpatient Speech Language Pathology Referred by: Vel Lazaro MD Start time: 12:45 End time: 1:30 Total patient contact: 45 min Referral Type: Routine Swallow Consult NPO awaiting eval Precautions: Standard, Fall, Full Code Reason for Referral/HPI: Zeke is a 68 y/o M with Parkinson's Disease (dx'd 2018) followed previously by ODD JOB LABORER service (outpatient) for dysphagia r/t PD. He is also followed by neurology and pulmonology at [facility]. He was brought to ED due to high fever, weakness/lethargy, diarrhea, dysuria and cough, and admitted with likely septic pneumonia with hypotension/tachycardia and with possible additional component of occult infection such as UTI or viral illness. X-ray remarkable for bilateral lung base infiltrates in the right middle and left lower lobe. Of note, he was treated recently for another pneumonia, which he felt he had gotten better from until symptoms got worse again earlier this week. He also had COVID in Feb 2024. FROM [facility] [place]: Severe chronic pharyngeal>oral dysphagia characterized by diffuse pharyngeal deficits but most notably: reduced anterior hyoid movement and associated absent epiglottis inversion/PES opening, reduced pharyngeal wall stripping wave. Also noting mild reduced airway protection/closure. Oral control was quite good but did note some lingual tremulousness with liquids. Swallow initiation relatively timely. These deficits resulted in a significant amount of vallecular>pyriform residue and resulted in aspiration into the airway of thin liquids both during but especially after the swallow. Patient was successful at times in clearing thin liquids from the airway, but unable to effectively re-swallow and residue would repeatedly drip into the airway despite efforts to clear. Patient aspirated on both thin and thickened liquids but was less successful in clearing more viscous liquids from airway. No aspiration of puree and solid textures but residue was significant, with patient unable to actually clear material from pharynx even by end of study with several strategies and attempts made to clear. ODD JOB LABORER IMPRESSIONS & RECOMMENDATIONS: Zeke presents with likely progression or exacerbation of known dysphagia symptoms in light of deconditioned medical status. He coughs with ice chips as well as thin liquids this date, declines trials of thickened liquids. At baseline he was known to aspirate on both thick and thickened liquids, with a more difficulty time clearing thickened liquids from the airway than thin. The patient is interested in lowest-risk PO intake at this time. We did offer to do a repeat inpatient MBSS this date in light of multiple recent pneumonias (last exam was ~ 1 yr ago), but given that patient is unlikely to eliminate aspiration risk at this time, he opted to do this as an outpatient once he is feeling stronger. For now, patient is agreeable to increasing diligence of aspiration precautions in order to try to minimize bacterial load on aspiration, including 1. minimize PO fluid intake of anything other than water, 2. consume water/liquids BETWEEN MEALS when mouth is clean to minimize carrying residual food particles into airway and 3. increase diligence of oral care to before/after meals & snacks, and before/after consuming any liquids other than water to limit bacteria growth). FURTHER INPATIENT ODD JOB LABORER SERVICES: ODD JOB LABORER will follow patient while on unit DISCHARGE RECOMMENDATIONS: Please place outpatient ODD JOB LABORER referral Place outpatient MBSS orders Diet Recommendations: ? SOLIDS: 5-Minced & Moist Solids and 4-Pureed Solids LIQUIDS: 0-Thin Liquids (encourage only water, OUTSIDE of meals with good oral care only) MEDICATIONS: Whole 1 at a time With 4-Purees (follow with second bite puree to ensure pharyngeal clearance) Alter medications only as advised by MD or Pharmacist RISK MANAGEMENT: Level of Assistance/Supervision: Intermittent supervision for all PO intake Positioning and environment: PO intake only when awake/alert? Reduce auditory and/or visual distractions when eating Up to chair Oral hygiene Before/after PO intake Using friction with toothbrush on all oral structures as tolerated Strategies/Adaptations/Assistive Equipment: Small sips&Small bites Slow rate of intake Swallow between bites/Multiple swallows Do not drink liquids while eating meals Liquid intake should be primarily water, after good oral care, in light of known aspiration. Reflux Precautions: Maintain fully upright position at least 30 minutes after meals Sleep with head of bed elevated to reduce likelihood of nocturnal reflux Education Provided to: Nursing Patient Family Physician Topics Addressed: anatomy/physiology of swallowing mechanism definition and impacts of aspiration impact of current diagnoses on swallow function role of ODD JOB LABORER in management of swallow disorders overt s/sx to monitor for re: potential aspiration of food / liquids relationship between respiratory function and deglutition rationale and instruction for additional risk management strategies as above SUBJECTIVE: Patient received: alert/awake, lethargic. Agreeable to evaluation. He reports he feels swallow function has been stable since we met last year, except in the last few days while he has been sick, he has had additional coughing with food/drink. He continues to do his swallow and expiratory strength training exercises as well as works out at the gym regularly. Patient spontaneously states that he would never want a feeding tube. Pain Reported n/a OBJECTIVE Patient positioning: As upright as possible using HOB/bed tilt controls Respiratory status: Room air, Tolerates well without s/sx dyspnea, no baseline coughing observed by ODD JOB LABORER but patient reports frequent productive coughing throughout day. Orientation/Mental status: Oriented to self, Oriented to situation, Oriented to day/month/year, Oriented to location, appears to be areliable society reporter, recall of recent events is intact, follows instructions easily without delays. Speech: WFL, somewhat monotone, some wet vocal quality at baseline consistent with prior visits Oral Mechanism Examination: Dentition: Natural dentition, Good condition, Oral mucosa: Dry, otherwise good oral care? Cranial Nerve Assessment: CN V ? Trigeminal Facial Sensation WNL Jaw Strength/ROM WNL ?WNL CN VII- Facial WNL labial ROM, strength, coordination. WNL lingual sensation WNL CN IX ? Glossopharyngeal WNL palatal elevation with phonation. No evidence of nasal emissions WNL CN X ? Vagus WNL Vocal quality and volume. Strong/sharp volitional cough WNL CX XII ? Hypoglossal WNL lingual ROM, strength, coordination WNL PO Intake: Trials Assessed: Ice IDDSI 0 Thin Liquids IDDSI 4 Puree Solid Oral Phase Findings: Mild Diffuse (lingual) Residue with puree Pharyngeal Phase Findings: Good hyolaryngeal elevation/excursion Cough after swallow (ice & liquids > solids) Voice change after swallow? Spontaneously with 2-3 swallows per bite/sip ? [place] Swallow Protocol Results: S/sx aspiration observed PLAN: Frequency: 2-3x/week for 1-2 weeks Goals: Behavioral Instructor Goals: Patient will remain free from aspiration-related illness, malnutrition, and dehydration. Patient/family will verbalize comprehension of education provided re: dysphagia, strategies to maximize functioning, and role of ST. Short Term Goals: Patient will tolerate Minced/Moist Diet and Thin liquids without overt s/s aspiration across 2/2 visits. Patient will report adherence to recommended aspiration precautions as outlined in recommendations above. ODD JOB LABORER CPT Code: 50846 Clinical Swallowing Evaluation
[2024-07-14] MEDS: VANCOMYCIN/WATER (PEG) 1 GM/200 ML BAG IV (16:22)
[2024-07-14] MEDS: Normal Saline 500 ML IV (17:08)
[2024-07-14] MEDS: PIPERACILLIN/TAZO 4.5 GM in Normal Saline 100 ML IVPB (18:09)
[2024-07-14] MEDS: Lactated Ringers 1,000 ML 150 ML IV (19:39)
[2024-07-15] VITALS (40 sets, daily range): BP systolic 95–114; BP diastolic 63–74; PULSE 62–91; RESP 17–29; TEMP 36.7–39.6; O2SAT 83–98
[2024-07-15] MEDS: Normal Saline Flush 10 ML SYR IVP ×3 (00:27→15:43)
[2024-07-15] MEDS: PIPERACILLIN/TAZO 4.5 GM in Normal Saline 100 ML IVPB ×4 (00:27→19:57)
[2024-07-15] MEDS: Lactated Ringers 1,000 ML 150 ML IV ×2 (02:32→11:28)
[2024-07-15] MEDS: VANCOMYCIN/WATER (PEG) 1 GM/200 ML BAG IV (04:42)
[2024-07-15] MEDS: DOXYCYCLINE 100 MG in Normal Saline 100 ML IVPB ×2 (06:14→18:11)
[2024-07-15 06:47] LABS: HGB 11.8 g/dL (13.5-17.5); MCH 31.4 pg (27.0-33.0); MCHC 34.7 % (32.0-36.0); MCV 90 fL (80-95); MPV 9.3 fL (8.0-11.0); Platelet Count 147 10^3/uL (130-400); RBC 3.76 10^6/uL (4.36-5.78); RDW 13.2 % (11.8-14.1); RDW-SD 43.2 fL
[2024-07-15 07:03] LABS: Anion Gap 5.5 mmol/L (3-11); BUN 11 mg/dL (7-18); CO2 28.5 mmol/L (21.0-32.0); CREATININE 0.6 mg/dL (0.70-1.30); Calcium 7.9 mg/dL (8.5-10.1); Chloride 105 mmol/L (98-107); Glucose 98 mg/dL (74-106); Magnesium 1.5 mg/dL (1.8-2.4); Potassium 3.4 mmol/L (3.5-5.1); Sodium 139 mmol/L (136-145)
[2024-07-15 07:06] LABS: Absolute Basophil Count 0.04 10^3/uL (0.0-0.2); Absolute Lymphocyte Count 0.78 10^3/uL (1.2-3.4); Absolute Monocyte Count 0.07 10^3/uL (0.1-0.8); Absolute Neutrophil Count 2.81 10^3/uL (1.2-6.7); Atypical Lymphocytes % 1 %
[2024-07-15 07:07] LABS: Diff Comment Manual Differential; RBC Morphology Normal
[2024-07-15] MEDS: MAGNESIUM SULFATE 4 GM/100 ML BAG IV_INF (08:17)
[2024-07-15] MEDS: Loratidine 10 MG TAB PO (08:19)
[2024-07-15] MEDS: Carbidopa 25/Levodopa 100 TAB PO ×3 (08:19→17:07)
[2024-07-15] MEDS: Folic Acid 1 MG TAB PO (08:19)
[2024-07-15] MEDS: POTASSIUM CHLORIDE 20 MEQ/100 ML BAG 50 MEQ IV_INF (08:19)
[2024-07-15] MEDS: Enoxaparin 40 MG/0.4 ML SYR SC (08:20)
--- NOTE | 2024-07-15 10:45 | RT.EKG_ITS ---
APPROVED REPORT Exam: Resting ECG Reason for Exam: tele changes Patient Location: I HR:74 bpm ECG Measurements Heart Rate 74 AXIS FL 165 P 11 QRSd 110 QRS 87 QT 390 T 61 QTc 433 Conclusion Sinus rhythm...normal P axis, V-rate 50- 99 Borderline right axis deviation...QRS axis ( 81, 90)
--- NOTE | 2024-07-15 11:45 | PHA.REVIEW2 ---
Pharmacy Admission Review Admission Clinical Review Admission Pharmacy Review: Hypomagnesemia (Acute) Hypotension (Acute) Pneumonia (Acute) Sepsis (Acute) metronidazole (From Flagyl) Allergy (Intermediate, Verified 07/13/24 18:18) rash Resuscitation Status Full Code Height 6 ft 2 in Weight 69.2 kg Pharmacy Admission Review Renal Dosing Renal Dosing: BUN 11 mg/dL (7-18) 07/15/24 06:08 Creatinine 0.6 mg/dL (0.70-1.30) L 07/15/24 06:08 Medications needing adjustments: Reviewed (CrCl 70.1 mL/min) List of meds needing interventions: Current medications are okay Anticoagulation Anticoagulation: Hgb 11.8 g/dL (13.5-17.5) L 07/15/24 06:08 Hct 34.0 % (40.0-50.0) L 07/15/24 06:08 Plt Count 147 10^3/uL (130-400) 07/15/24 06:08 Creatinine 0.6 mg/dL (0.70-1.30) L 07/15/24 06:08 DVT Prophylaxis: Reviewed (Hgb decreased from 12.4) Medications: Enoxaparin (40mg daily) Relevant Labs Relevant Labs: Sodium 139 mmol/L (136-145) 07/15/24 06:08 Potassium 3.4 mmol/L (3.5-5.1) L 07/15/24 06:08 Chloride 105 mmol/L (98-107) 07/15/24 06:08 Magnesium 1.5 mg/dL (1.8-2.4) L 07/15/24 06:08 Electrolytes, C-Reactive P, ESR: Reviewed (K 3.4 - IV infusion given this morning. Mg 1.5 - IV infusion given this morning) Cardiac Review Cardiac Review: Blood Pressure 95/63 0201 Blood Pressure 113/70 0001 BP, HR, EF%: Reviewed (HR WNL, oxygen flow rate =1) QTc Review QTc: Reviewed (EKG report pending) IV to PO Switch IV Medications: Reviewed (Doxycycline, Zosyn and vancomycin) Home Meds Home Med List reviewed: Reviewed Current Meds Current Medication Order Review: Reviewed Pharmacy Antibiotic Review Relevant Labs: WBC 3.70 10^3/uL (4.4-10.8) L 07/15/24 06:08 Temperature 37.4 C Microbiology 07/14/24 09:20 Urine Culture - Preliminary Urine - Cath Nascimento Indwelling NO GROWTH 24 HOURS 07/13/24 18:30 Blood Culture - Preliminary Blood NO GROWTH 24 HOURS 07/13/24 18:25 Blood Culture - Preliminary Blood NO GROWTH 24 HOURS Pharmacy Antibiotic Activity: C/S review and Reviewed, no change Comments: Patient is on doxycycline (day 2), vancomycin (day 2) and Zosyn (day 1), for sepsis/pneumonia. Current vancomycin dose is 1g q12h with predicated AUC of 452 and trough of 13.3. Per progress note from yesterday provider may discontinue vancomycin today. If it is not discontinued, will order level. Patient also received 4 doses of Unasyn which was discontinued last night and changed to Zosyn. WBC slightly decreased from 3.85.
[2024-07-15 12:21] LABS: MRSA PCR Negative (Negative)
--- NOTE | 2024-07-15 12:26 | PGE_ITS ---
Date of Service Date of service: 07/15/24 Time of Service: 12: Assessment and Plan Assessment and plan (1) Sepsis: Start date: 07/13/24 Status: Acute Assessment and plan: Met criteria on admission with fever, elevated RR/HR and source appears to be pulmonary. Was breifly hypotensive but responded to IV fluid resuscitation and was initiated on Unasyn/vancomycin/doxy for pneumonia, Unasyn to Pip/Tazo 07/14, additional 500ml bolus while febrile, stayed in ICU. MRSA swab negative, now afebrile, blood cultures NG, stop vancomycin Given somewhat limited po and sweating overnight, keep maintenance fluids. Continue to monitor, can downgrade to [facility] floor from ICU if remains stable this afternoon. (2) Pneumonia: Status: Acute Assessment and plan: IV Pip/tazo with possible recurrent aspiration, doxycycline to cover atypicals, day 3 of 5-7 Pulmonary toilet. Unfortunately with progression of dysphagia he is at high risk of continued aspiraiton. (3) Hypomagnesemia: Start date: 07/13/24 Status: Acute Assessment and plan: Repleted IV, again 07/15 with potassium. (4) Parkinson disease: Status: Chronic Assessment and plan: Continue outpatient medical therapy. Patient was doing well overall with treatment though he appears to be having progressive disease with swallowing difficulties. SECURITY SPECIALIST confirms progression of dysphagia. He may benefit from more levodopa/carbidopa. For now, oral hygeine and precautions. He does not want a feeding tube. (5) Anemia: Status: Chronic Assessment and plan: h/h dropped with hydration, stable 07/14- (6) DVT prophylaxis: Status: Acute Assessment and plan: enoxaparin Subjective Subjective Patient reports: denies diarrhea, nausea, vomiting or shortness of breath Interval history since last seen: evetns: Febrile all day 07/14, amp/sulb replaced with pip/tazo, NS x 500ml x 1 improved malaise SECURITY SPECIALIST evaluation confirms aspiration, diet adjusted He feels better this morning. Fever broke last night, woke up drenched in sweat. He is starving, wants to eat. Exam Narrative Exam Narrative: General: Patient appears thin fatigued, clammy, but able to sit up, chronically ill, alert and oriented x 3 and in no acute distress. Lungs: Decreased aeration both bases with crackles left base. Breath sounds more clear otherwise. Heart: Regular rate and rhythm with no murmurs or gallops Abdomen: +BS, soft to palpation with no focalizing tenderness or guarding. Extremities: Without clubbing, cyanosis or edema. Objective Last Vital Signs Temp 37.4 C 07/15/24 00:20 Pulse 72 07/15/24 03:30 Resp 24 07/15/24 03:30 BP 95/63 L 07/15/24 02:01 Pulse Ox 97 07/15/24 08:20 Laboratory Results - last 24 hr 07/15/24 07/15/24 06:08 10:35 WBC 3.70 L RBC 3.76 L Hgb 11.8 L Hct 34.0 L MCV 90 MCH 31.4 MCHC 34.7 RDW 13.2 Plt Count 147 MPV 9.3 Immature Gran % 0.0 Neutrophils % 76.0 Lymphocytes % 20.0 Atypical Lymphs % 1 Monocytes % 2.0 Eosinophils % 0.0 Basophils % 1.0 Nucleated RBC % 0.0 Absolute Neutrophils 2.81 Absolute Lymphocytes 0.78 L Absolute Monocytes 0.07 L Absolute Eosinophils 0.00 Absolute Basophils 0.04 RBC Morphology Normal Sodium 139 Potassium 3.4 L Chloride 105 Carbon Dioxide 28.5 Anion Gap 5.5 BUN 11 Creatinine 0.6 L Est GFR (CKD-EPI 2020) 105.80 Glucose 98 Calcium 7.9 L Magnesium 1.5 L MRSA (TEM-PCR) Negative Time Spent with Patient Time Spent with Patient: >50 minutes Time was spent: preparing to see the patient(eg.review tests), obtaining and/or reviewing separately otained hiistory, ordering medications,tests, procedures, referring, communicating with other health healthcare financial analyst, indepentently interpreting results, counseling the patient and care coordination
[2024-07-15] MEDS: POTASSIUM CHLORIDE/D5-0.45NACL 1,000 ML 125 MEQ IV ×2 (13:38→23:15)
[2024-07-15] MEDS: Normal Saline 500 ML 30 ML IV (13:40)
--- NOTE | 2024-07-15 15:16 | W.PC.ACHO ---
Registration Status: Primary Language: Preferred Language: ED Information & Data Chief Complaint Fever 07/13/24 18:50 Triage Note Pt reports fevers 102 over 07/13/24 18:14 the past 4 days- hx of pneumonia- does come down with Apap- last does of Apap at [facility] just prior to arrival , persistent cough that has been present since the pneumonia Medical / Surgical History (Last Reviewed 07/14/24 @ 06:31 by Vel Lazaro) Constipation Cataract History of tobacco abuse Allergic rhinitis Generalized anxiety disorder History of proctitis Shoulder pain, right Bradykinesia Chronic low back pain Hearing loss Night sweats Parkinsons Environmental allergies Proctitis Anxiety (Last Reviewed 07/14/24 @ 06:31 by Vel Lazaro) History of cataract surgery S/P scrotal varicocelectomy Spermatocele AVM (arteriovenous malformation) Colonoscopy - IV Sedation Most Recent Vital Signs Temperature 37.3 C 07/15/24 14:00 Temperature Source Tympanic 07/15/24 14:00 Pulse 76 07/15/24 14:01 Pulse 78 07/15/24 14:01 Respiratory Rate 23 07/15/24 14:01 Respiratory Effort Normal 07/14/24 00:42 Respiratory Depth Shallow 07/14/24 00:42 Respiratory Pattern Normal 07/14/24 00:42 Blood Pressure 103/68 07/15/24 14:01 Blood Pressure Mean 80 07/15/24 14:01 Blood Pressure Position Supine 07/14/24 00:42 Pulse Oximetry 83 L 07/15/24 14:01 Oxygen Delivery Method Nasal Cannula 07/15/24 08:20 Oxygen Flow Rate 1 07/15/24 08:20 Pain Level 0 07/14/24 00:42 Comment Prior shift 07/14/24 06:01 Allergies metronidazole (From Flagyl) Allergy (Intermediate, Verified 07/13/24 18:18) rash Precautions Isolation Standard precaution 07/13/24 18:17 Active Medications Generic Name Dose Route Start Last Admin Trade Name Freq PRN Reason Stop Dose Admin Acetaminophen 0 mg 07/13/24 23:14 07/14/24 20:11 Acetaminophen 325 Mg Tab PO 650 mg Q4H PRN PRN Administration Carbidopa/Levodopa 1 tab 07/14/24 12:00 07/15/24 12:24 Carbidopa 25/Levodopa 100 Tab PO 1 tab TID@0700,1200,1700 VANITA Administration Diclofenac Sodium 50 mg 07/14/24 01:06 07/14/24 17:31 Diclofenac Sodium 50 Mg Tabec PO 50 mg TID PRN PRN Administration Pain Enoxaparin Sodium 40 mg 07/14/24 08:00 07/15/24 08:20 Enoxaparin 40 Mg/0.4 Ml Syr SC 40 mg DAILY@0800 VANITA Administration Folic Acid 1 mg 07/14/24 08:30 07/15/24 08:19 Folic Acid 1 Mg Tab PO 1 mg DAILY VANITA Administration Doxycycline Hyclate 100 mg/ 100 mls @ 100 mls/hr 07/14/24 06:00 07/15/24 07:40 Sodium Chloride IVPB Infused Q12H VANITA Infusion Piperacillin Sod/Tazobactam 100 mls @ 200 mls/hr 07/14/24 18:00 07/15/24 13:59 Sod 4.5 gm/ Sodium Chloride IVPB Infused Q6H VANITA Infusion Potassium Chloride/Sodium Chloride 1,000 mls @ 125 mls/hr 07/15/24 12:45 07/15/24 13:38 Kcl 20meq/D5-0.45% Nacl IV 07/16/24 20:44 125 mls/hr INFUSION VANITA Administration Sodium Chloride 500 mls @ 0 mls/hr 07/15/24 13:36 07/15/24 13:40 Saline 500ml Bag IV 30 mls/hr PRN PRN Administration As Directed Loratadine 10 mg 07/14/24 08:30 07/15/24 08:19 Loratidine 10 Mg Tab PO 10 mg DAILY VANITA Administration Sodium Chloride 0 ml 07/13/24 18:26 07/15/24 00:27 Normal Saline Flush 10 Ml Syr IVP 40 ml PRN PRN Administration Sodium Chloride 0 ml 07/13/24 20:00 07/15/24 08:20 Normal Saline Flush 10 Ml Syr IVP 40 ml BID VANITA Administration IV IV Catheter Type [Left Peripheral IV Antecubital] IV Catheter Type [Right Peripheral IV Forearm] IV Catheter Gauge [Left 20 Antecubital] IV Catheter Gauge [Right 18 Forearm] Diagnostics 07/15/24 07/15/24 Range/Units 10:35 06:08 WBC 3.70 L (4.4-10.8) 10^3/uL RBC 3.76 L (4.36-5.78) 10^6/uL Hgb 11.8 L (13.5-17.5) g/dL Hct 34.0 L (40.0-50.0) % MCV 90 (80-95) fL MCH 31.4 (27.0-33.0) pg MCHC 34.7 (32.0-36.0) % RDW 13.2 (11.8-14.1) % Plt Count 147 (130-400) 10^3/uL MPV 9.3 (8.0-11.0) fL Immature Gran % 0.0 % Neutrophils % 76.0 % Lymphocytes % 20.0 % Atypical Lymphs % 1 % Monocytes % 2.0 % Eosinophils % 0.0 % Basophils % 1.0 % Nucleated RBC % 0.0 (0.0-0.3) % Absolute Neutrophils 2.81 (1.2-6.7) 10^3/uL Absolute Lymphocytes 0.78 L (1.2-3.4) 10^3/uL Absolute Monocytes 0.07 L (0.1-0.8) 10^3/uL Absolute Eosinophils 0.00 (0.0-0.7) 10^3/uL Absolute Basophils 0.04 (0.0-0.2) 10^3/uL RBC Morphology Normal Sodium 139 (136-145) mmol/L Potassium 3.4 L (3.5-5.1) mmol/L Chloride 105 (98-107) mmol/L Carbon Dioxide 28.5 (21.0-32.0) mmol/L Anion Gap 5.5 (3-11) mmol/L BUN 11 (7-18) mg/dL Creatinine 0.6 L (0.70-1.30) mg/dL Est GFR (CKD-EPI 2020) 105.80 (mL/min/1.73m2) Glucose 98 (74-106) mg/dL Calcium 7.9 L (8.5-10.1) mg/dL Magnesium 1.5 L (1.8-2.4) mg/dL MRSA (TEM-PCR) Negative (Negative) 07/14/24 09:20 Urine Culture - Preliminary Urine - Cath Nascimento Indwelling 07/13/24 18:30 Blood Culture - Preliminary Blood NO GROWTH 24 HOURS 07/13/24 18:25 Blood Culture - Preliminary Blood NO GROWTH 24 HOURS Intake and Output - 24 Hour Total 07/13/24 18:07 thru 07/15/24 13:59 Intake Total 46583.833 Output Total 2260 Balance 7780.833 Weight 69.2 kg Intake: IV 9240.833 Oral 800 Output: Urine 2260 Other: Urine Color Light Shena Urine Appearance Clear Comment Collected via syringe for urine sample Stool Size Moderate Stool Characteristics Soft Brown Urinary Catheter Urinary Catheter Date of 07/13/24 Insertion [Urethral (Nascimento)] Time of insertion [Urethral ( 20:41 Nascimento)] Falls Risk Assessment History of Falls No History 07/14/24 00:42 Contributing Factors Impairments 07/14/24 00:42 Ambulatory Aids Uses ambulatory device 07/14/24 00:42 Tubes/Lines W/no contributing factors 07/14/24 00:42 Gait Evaluation W/any additional score 07/14/24 00:42 Cognition No cognitive impairment 07/14/24 00:42 Fall Total Score 48 07/14/24 00:42 Level of Risk Moderate Risk 07/14/24 00:42 Problems (Last Reviewed 07/14/24 @ 06:31 by Vel Lazaro) DVT prophylaxis (Acute) Anemia (Chronic) Hypomagnesemia (Acute) Hypotension (Acute) Pneumonia (Acute) Sepsis (Acute) Parkinson disease (Chronic) v v v v v v v v v Sending and/or Receiving Nurses: Please use comment section below to note any information pertinent to the patient hand-off not included above. Information / Comments: Report received from: Yenifer in ICU, pt moved to 210 on M/S
--- NOTE | 2024-07-15 15:30 | NUR.NOTE ---
Nursing Note: Pt transferred from ICU to M/S 210
[2024-07-15] MEDS: Acetaminophen 325 MG TAB PO (18:10)
[2024-07-16] VITALS (7 sets, daily range): BP systolic 108–128; BP diastolic 73–81; PULSE 74–80; RESP 16–18; TEMP 36.3–37.8; O2SAT 94–96
[2024-07-16] MEDS: PIPERACILLIN/TAZO 4.5 GM in Normal Saline 100 ML IVPB ×5 (00:18→23:53)
[2024-07-16] MEDS: DOXYCYCLINE 100 MG in Normal Saline 100 ML IVPB ×2 (05:32→18:17)
[2024-07-16 07:02] LABS: Absolute Eosinophil Count 0.04 10^3/uL (0.0-0.7); HCT 35.9 % (40.0-50.0); HGB 12.2 g/dL (13.5-17.5); MCH 31.2 pg (27.0-33.0); MCV 92 fL (80-95); MPV 9.3 fL (8.0-11.0); Platelet Count 143 10^3/uL (130-400); RBC 3.91 10^6/uL (4.36-5.78); RDW 13.2 % (11.8-14.1); RDW-SD 44.3 fL; WBC 3.69 10^3/uL (4.4-10.8)
[2024-07-16 07:13] LABS: Anion Gap 4.1 mmol/L (3-11); BUN 7 mg/dL (7-18); CO2 28.9 mmol/L (21.0-32.0); CREATININE 0.5 mg/dL (0.70-1.30); Calcium 7.8 mg/dL (8.5-10.1); Chloride 105 mmol/L (98-107); Estimated GFR 111.79 (mL/min/1.73m2); Glucose 106 mg/dL (74-106); Magnesium 1.7 mg/dL (1.8-2.4); Potassium 3.7 mmol/L (3.5-5.1); Sodium 138 mmol/L (136-145)
[2024-07-16 07:27] LABS: Absolute Lymphocyte Count 1.11 10^3/uL (1.2-3.4); Absolute Monocyte Count 0.26 10^3/uL (0.1-0.8); Absolute Neutrophil Count 2.29 10^3/uL (1.2-6.7); Atypical Lymphocytes % 2 %; Diff Comment Manual Differential; RBC Morphology Normal
[2024-07-16] MEDS: Enoxaparin 40 MG/0.4 ML SYR SC (08:44)
[2024-07-16] MEDS: Carbidopa 25/Levodopa 100 TAB PO ×3 (08:44→17:18)
[2024-07-16] MEDS: Normal Saline Flush 10 ML SYR IVP ×3 (08:44→23:53)
[2024-07-16] MEDS: Folic Acid 1 MG TAB PO (08:44)
[2024-07-16] MEDS: Loratidine 10 MG TAB PO (08:44)
--- NOTE | 2024-07-16 12:01 | PGE_ITS ---
Date of Service Date of service: 07/16/24 Time of Service: 12:02 Assessment and Plan Assessment and plan (1) Severe sepsis: Status: Acute Assessment and plan: - Patient met criteria for severe sepsis with temperature of 102.4 ?F, heart rate of 105, respiratory rate as high as 34, leukopenia with a white blood cell count of 3.85, source of infection being pneumonia as seen on imaging, and hypotension with blood pressure 84/55 (mean arterial pressure of 59), that responded to fluid resuscitation - Patient was started on Unasyn and Vanco Doxy for pneumonia, was then changed to Zosyn Vanco and Doxy, with vancomycin discontinued after negative MRSA swab - While patient is feeling significantly better, he is having persistent late afternoon/early evening fevers with last temperature of 39.3 ?C at around 1800 on 07/15/2024 - Will continue to monitor patient for an additional night to see if he is persistently febrile, as at this time there is no other objective evidence is why he would be persistently febrile as he feels significantly better, has not developed a white count, and all other labs and signs of infection are significantly improved. (2) Pneumonia: Status: Acute Assessment and plan: - Source of infection as noted above, likely aspiration due to patient's Parkinson's and progressive dysphagia as noted below (3) Hypomagnesemia: Start date: 07/13/24 Status: Acute Assessment and plan: -Repleted IV, again 07/15 with potassium. - Improved as of a.m. 07/16 (4) Parkinson disease: Status: Chronic Assessment and plan: -Continue outpatient medical therapy. -Patient was doing well overall with treatment though he appears to be having progressive disease with swallowing difficulties. -FLIGHT CONTROL TOWER OPERATOR confirms progression of dysphagia. -He may benefit from more levodopa/carbidopa. -For now, oral hygeine and precautions. He does not want a feeding tube. (5) Anemia: Status: Chronic Assessment and plan: h/h dropped with hydration, stable 07/14- (6) DVT prophylaxis: Status: Acute Assessment and plan: enoxaparin Subjective Subjective Interval history since last seen: Patient states that he is feeling better has his strength back, and was ambulating in the halls shortly after my exam. However, he does express understandable concerns given that he is persistently afebrile at night. Otherwise he has no other complaints or concerns at this time. Exam Narrative Exam Narrative: Well-appearing gentleman sitting in the chair no acute distress, ANO x 4, heart regular rhythm, lungs good auscultation bilaterally, abdomen soft, nontender, nondistended, very mild resting tremor noted in bilateral upper extremities with masklike facies Objective Last Vital Signs Temp 97.5 F L 07/16/24 11:18 Pulse 74 07/16/24 11:18 Resp 16 07/16/24 11:18 BP 115/73 07/16/24 11:18 Pulse Ox 96 07/16/24 11:18 Laboratory Results - last 24 hr 07/15/24 07/16/24 10:35 06:28 WBC 3.69 L RBC 3.91 L Hgb 12.2 L Hct 35.9 L MCV 92 MCH 31.2 MCHC 34.0 RDW 13.2 Plt Count 143 MPV 9.3 Immature Gran % 0.0 Neutrophils % 62.0 Lymphocytes % 28.0 Atypical Lymphs % 2 Monocytes % 7.0 Eosinophils % 1.0 Basophils % 0.0 Nucleated RBC % 0.0 Absolute Neutrophils 2.29 Absolute Lymphocytes 1.11 L Absolute Monocytes 0.26 Absolute Eosinophils 0.04 Absolute Basophils 0.00 RBC Morphology Normal Sodium 138 Potassium 3.7 Chloride 105 Carbon Dioxide 28.9 Anion Gap 4.1 BUN 7 Creatinine 0.5 L Est GFR (CKD-EPI 2020) 111.79 Glucose 106 Calcium 7.8 L Magnesium 1.7 L MRSA (TEM-PCR) Negative Time Spent with Patient Time Spent with Patient: >50 minutes Time was spent: preparing to see the patient(eg.review tests), obtaining and/or reviewing separately otained hiistory, ordering medications,tests, procedures, referring, communicating with other health career technical education instructor, indepentently interpreting results, counseling the patient and care coordination
[2024-07-17 03:47] VITALS: BP 140/73; PULSE 77; RESP 16; TEMP 37.2; O2SAT 95
[2024-07-17] MEDS: PIPERACILLIN/TAZO 4.5 GM in Normal Saline 100 ML IVPB (06:06)
[2024-07-17 06:30] LABS: HCT 38.1 % (40.0-50.0); HGB 13.5 g/dL (13.5-17.5); MCH 31.5 pg (27.0-33.0); MCHC 35.4 % (32.0-36.0); MCV 89 fL (80-95); MPV 9.1 fL (8.0-11.0); Platelet Count 193 10^3/uL (130-400); RBC 4.29 10^6/uL (4.36-5.78); RDW 12.9 % (11.8-14.1); RDW-SD 42.2 fL; WBC 4.94 10^3/uL (4.4-10.8)
[2024-07-17] MEDS: Carbidopa 25/Levodopa 100 TAB PO (06:34)
[2024-07-17 06:49] LABS: Anion Gap 8.1 mmol/L (3-11); BUN 6 mg/dL (7-18); CO2 28.9 mmol/L (21.0-32.0); CREATININE 0.6 mg/dL (0.70-1.30); Calcium 8.4 mg/dL (8.5-10.1); Chloride 102 mmol/L (98-107); Glucose 94 mg/dL (74-106); Potassium 3.8 mmol/L (3.5-5.1); Sodium 139 mmol/L (136-145)
[2024-07-17] MEDS: DOXYCYCLINE 100 MG in Normal Saline 100 ML IVPB (06:50)
[2024-07-17 08:14] VITALS: BP 117/83; PULSE 80; RESP 14; TEMP 37; O2SAT 97
--- NOTE | 2024-07-17 08:45 | W.PM.DS.N ---
Date of service: 07/17/24 Time of Service: 08:46 DS: Diagnosis Discharge Diagnosis (1) Severe sepsis: Status: Acute (2) Pneumonia: Status: Acute (3) Hypomagnesemia: Status: Acute (4) Parkinson disease: Status: Chronic (5) Anemia: Status: Chronic (6) DVT prophylaxis: Status: Acute Discharge Plan Disposition Patient Disposition: Home Condition: Good Discharge Details Reason For Visit: Sepsis with transient hypotension, Parkinson's,... Admit Date/Time: 07/13/24 22:23 Admit Provider: Vel Lazaro Attending Provider: Vel Lazaro Primary Care Provider: Milton Armenta Hospital Course Hospital Course: Patient initially presented to the hospital with signs consistent with severe sepsis secondary to community-acquired pneumonia likely secondary to aspiration in the setting of worsening dysphagia and Parkinson's. He was initially treated with Unasyn, vancomycin and doxycycline that was subsequently changed to Zosyn and vancomycin and doxycycline and had significant improvement of his symptoms. MRSA swabs negative vancomycin was discontinued. Patient continued to have persistent fevers up to 39.3 ?C until the evening of 07/15/2024, after which he remained afebrile. Functionally he also returned to his baseline status. Given that the patient had overall improvement of his symptoms and return to his functional baseline it was determined that he was stable for discharge home. Home Meds and New Rx's Prescriptions: New amoxicillin-pot clavulanate 875-125 mg tablet 1 tab PO BID Qty: 10 0RF Continued carbidopa-levodopa [Sinemet] 25-100 mg tablet 1 tab PO TID Qty: 270 3RF Rx Instructions: Take around 7am, noon, and 5pm. diclofenac potassium 50 mg tablet 50 mg PO TID PRN loratadine 10 MG tablet,disintegrating 10 mg PO DAILY folic acid 1 mg tablet 1 mg PO DAILY Qty: 90 3RF albuterol sulfate 90 mcg/actuation HFA aerosol inhaler 2 puff INHALATION Q4H PRN Patient Comments: INHALE TWO PUFFS BY MOUTH EVERY 4 HOURS NEEDED Discharge Instructions Activity:: Activity as Tolerated Equipment/Supplies:: No Equipment Needed Diet:: As Tolerated Discharge Orders Discharge Orders: Discharge Order (Routine); Ordered 07/17/24 Ordered By: Rome Sadler DS: Summary Time Spent with Patient providing and/or coordinating discharge services: Greater than 30 minutes Status at Discharge Functional status at discharge: independent ambulation Overall status at discharge: patient is back to baseline Mental Status: mental status grossly normal Speech and Movement: speech and movement normal Mood: congruent mood Affect: normal affect Quality:SDOH Health Related Social Needs: Health related social needs education (Z55.6) Health related social needs details no needs Health related social needs details: no needs Exam Narrative Exam Narrative: Well-appearing gentleman sitting in the chair no acute distress, ANO x 4, heart regular rhythm, lungs good auscultation bilaterally, abdomen soft, nontender, nondistended, very mild resting tremor noted in bilateral upper extremities with masklike facies Psych Mental Status: mental status grossly normal Speech and Movement: speech and movement normal Mood: congruent mood Affect: normal affect DS: Data Vitals/I&O Vitals and I&O: Vital Signs Temperature 98.6 F 07/17/24 08:14 Temperature Source Temporal Artery Scan 07/17/24 08:14 Pulse 80 07/17/24 08:14 Pulse 78 07/15/24 14:01 Respiratory Rate 14 07/17/24 08:14 Respiratory Effort Normal 07/14/24 00:42 Respiratory Depth Shallow 07/14/24 00:42 Respiratory Pattern Normal 07/14/24 00:42 Blood Pressure 117/83 07/17/24 08:14 Blood Pressure Mean 80 07/15/24 14:01 Blood Pressure Position Supine 07/14/24 00:42 Pulse Oximetry 97 07/17/24 08:14 Oxygen Delivery Method Room Air 07/17/24 08:14 Oxygen Flow Rate 0 07/17/24 08:14 Pain Level 0 07/16/24 23:53 Comment temp recheck 07/15/24 20:59 Comment Prior shift 07/14/24 06:01 Intake & Output 07/16/24 07/17/24 07/17/24 17:59 05:59 17:59 Intake Total 2250 / 2250 300 / 2550 Output Total 2275 / 2275 1800 / 4075 Balance -25 / -25 -1500 / -1525 Weight 153 lb Intake: IV 1800 / 1800 300 / 2100 Oral 450 / 450 Output: Urine 2275 / 2275 1800 / 4075 Other: Urine Color Yellow Yellow Urine Appearance Clear Cloudy Urine Odor Normal Normal Comment no hat in toilet to measure not measured, large amount. chart wrong pt Stool Size Moderate Stool Characteristics Soft Brown Data Completed and Pending Labs on day of discharge: Labs from last 24 hours 07/17/24 06:20 WBC 4.94 RBC 4.29 L Hgb 13.5 Hct 38.1 L MCV 89 MCH 31.5 MCHC 35.4 RDW 12.9 Plt Count 193 MPV 9.1 Sodium 139 Potassium 3.8 Chloride 102 Carbon Dioxide 28.9 Anion Gap 8.1 BUN 6 L Creatinine 0.6 L Est GFR (CKD-EPI 2020) 105.80 Glucose 94 Calcium 8.4 L Preliminary micro results at discharge 07/13/24 18:30 Blood Culture - Preliminary Blood NO GROWTH 72 HOURS 07/13/24 18:25 Blood Culture - Preliminary Blood NO GROWTH 72 HOURS PFSH All Active Problems (Updated 07/17/24 @ 08:45 by Rome Sadler MD) Severe sepsis (Acute) DVT prophylaxis (Acute) Anemia (Chronic) Hypomagnesemia (Acute) Hypotension (Acute) Pneumonia (Acute) Sepsis (Acute) Dysphagia (Acute) Nuclear sclerotic cataract of left eye (Acute) Posterior subcapsular age-related cataract of left eye (Acute) ETOH abuse (Chronic) Parkinson disease (Chronic) Medical History Constipation Cataract History of tobacco abuse Allergic rhinitis Generalized anxiety disorder History of proctitis Shoulder pain, right Bradykinesia Chronic low back pain Hearing loss Night sweats Parkinsons Environmental allergies Proctitis Anxiety Surgical History History of cataract surgery S/P scrotal varicocelectomy Spermatocele 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
--- NOTE | 2024-07-17 09:01 | PDOC.CMPRO ---
Date of service: 07/17/24 Time of Service: 09:01 Care Management Progress Note Discharge Potential Discharge Needs: PCP F/U Appt Anticipated Barriers to Discharge: None Identified Patient/Family Education Needs: Review discharge instructions, discuss Ask Me Three Transportation: Private vehicle Plan: Anticipate Zeke will be discharged home with no new services when medically cleared. He will follow up with his community providers and plan of care and transport with a friend. CM will follow and continue to assess for discharge needs. Social Determinants of Health Screening Social Determinants of health last assessed in clinic: 07/14/24 Will the Patient Participate in the Screening?: Yes Do you worry about having a steady place to live?: no Problems where you live: no known problems In the past 12 months, have you had to go without electric, gas, oil or water in your home?: no Has lack of transportation kept you from medical appointments or from doing things needed for daily living?: no Has anyone in your life made you feel unsafe or unsupported?: no How hard is it for you to pay for the very basics like food, housing, medical care, and heating? Would you say it is:: Not hard at all Do you want help finding or keeping work or a job?: I do not need or want help If for any reason you need help with day-to-day activities such as bathing, preparing meals, shopping, managing finances, etc., do you get the help you need?: I don?t need any help How often do you feel lonely or isolated from those around you?: Never Do you speak a language other than Icelandic at home?: Yes Health Related Social Needs Health related social needs: education (Z55.6) Health related social needs details: no needs
--- NOTE | 2024-07-17 09:02 | PDOC.CMDIS ---
Date of service: 07/17/24 Time of Service: 09:02 LACE Index Scoring Tool Questions: Length of Stay (in days): 4 - 6 Was the patient admitted via the E.D.?: Yes E.D. Visits: 2 Answers: Total Score: 9 Risk of Readmission: Low Risk Care Management Discharge Plan Reason for Hospitalization: Pneumonia and sepsis Discharge Plan: Zeke will be discharged home with no new services. He will follow up with his community providers and plan of care and transport with a friend. Patient/Family Education Needs: Review discharge instructions, discuss Ask Me Three SDOH Health Related Social Needs: Health related social needs education (Z55.6) Health related social needs details no needs Health related social needs details: no needs
[2024-07-17] MEDS: Folic Acid 1 MG TAB PO (09:04)
[2024-07-17] MEDS: Enoxaparin 40 MG/0.4 ML SYR SC (09:04)
[2024-07-17] MEDS: Loratidine 10 MG TAB PO (09:04)
--- NOTE | 2024-07-17 10:45 | PDOC.CMDIS ---
Date of service: 07/17/24 Time of Service: 10:45 LACE Index Scoring Tool Questions: Length of Stay (in days): 4 - 6 Was the patient admitted via the E.D.?: Yes E.D. Visits: 2 Answers: Total Score: 9 Risk of Readmission: Low Risk Care Management Discharge Plan Reason for Hospitalization: Pneumonia and sepsis Discharge Plan: Zeke will be discharged home with no new services. He will follow up with his community providers and plan of care and transport with family. Patient/Family Education Needs: Review discharge instructions, limitations, follow up plan and discuss Ask Me Three SDOH Health Related Social Needs: Health related social needs education (Z55.6) Health related social needs details no needs Health related social needs details: no needs
== END 2024-07-17 09:46 | disposition home or self-care (01) | DRG 871 ==
LOC: ER 22:33 → ICU 23:12 → MS 07-15 15:28
PROVIDERS: Family Medicine; Admitting Provider Family Medicine; Emergency Provider Nurse Practitioner Family; PCP Family Medicine; Responsible Provider Family Medicine; Visit Provider Family Medicine
DX: A41.9 Sepsis, unspecified organism (principal); J69.0 Pneumonitis due to inhalation of food and vomit; E83.42 Hypomagnesemia; D64.9 Anemia, unspecified; R65.20 Severe sepsis without septic shock; G20.B1 Parkinson's disease with dyskinesia, without mention of fluctuations; R13.10 Dysphagia, unspecified; R19.7 Diarrhea, unspecified; M54.50 Low back pain, unspecified; Z87.891 Personal history of nicotine dependence; F41.1 Generalized anxiety disorder; G89.29 Other chronic pain
CPT/HCPCS: 00123; 36415; 51702; 80048; 80053; 82805; 85027; 87040; 87637; 87641; 92610; 96365; 96366; 96367; 99285; J1650; 71046; 81003; 81015; 83605; 83735; 84443; 85025; 87086; 93005; 93010; 99223; 99233; 99239; J0295; J2543; J3370; J3372; J3475; J3480

== ENCOUNTER 2024-08-16 00:12 | Outpatient (CLI) | payer MEDICARE, SELFPAY ==
--- NOTE | 2024-08-16 07:39 | DI.RAD_ITS ---
Exam(s) RF MODIFIED SPEECH BA SWALLOW EXAM: RF MODIFIED SPEECH BA SWALLOW CLINICAL HISTORY: worsening dysphagia,parkinsons disease,g20.b1,r13.10 TECHNIQUE: Modified barium swallow was performed in conjunction with speech pathology. CONTRAST MATERIAL: Multiple consistencies of oral barium contrast were administered. COMPARISON: RF RF MODIFIED SPEECH BA SWALLOW from 05/12/2023 FINDINGS: Note that this is not a dedicated esophagram, distal esophagus not evaluated. Significant aspiration was identified with all consistencies administered. There was also residue in the vallecular and piriform sinuses. Speech pathology report to follow. IMPRESSION: Significant aspiration wall consistencies. RADIATION DOSE DELIVERED: bulmaro Diallo=7.32 mGy
[2024-08-16] MEDS: Barium Sulfate 81% w/w for Oral Suspension 148 GM BTL PO (15:11)
[2024-08-16] MEDS: Barium Sulfate 40% W/V 240 ML BTL PO (15:12)
[2024-08-16] MEDS: Barium Sulfate Oral Paste 40% W/V 230 ML TUBE PO (15:14)
--- NOTE | 2024-08-16 15:32 | ST.MBS_ITS ---
Date of Service Date of service: 08/16/24 Time of Service: 15:32 Modified Barium Swallow Study Findings: Video fluoroscopic Swallowing Evaluation (VFSE) / Modified Barium Swallow Study (MBSS) Speech Language Pathology Report Patient referred for VFSE/MBSS from Dr. Platt given recent hospitalization for aspiration pneumonia. HPI & Patient report of function: Zeke is a 68 y/o M with Parkinson's Disease (dx'd 2019) followed previously by [facility] (outpatient) for dysphagia r/t PD. He is also followed by neurology and pulmonology at [facility]. He was recently hospitalized in the ICU due to aspiration pneumonia, weakness/lethargy, diarrhea, dysuria and cough, hypotension/tachycardia and with possible additional component of occult infection such as UTI or viral illness. X-ray at that time was remarkable for bilateral lung base infiltrates in the right middle and left lower lobe. He also had COVID in Feb 2024. Since returning home from the hospital, he has struggled with intake of solid foods, but has gradually increased from largely liquidized diet to puree and minced/moist foods. He was discharged from the hospital on 07/17/2024 and has not been readmitted nor had recurring fever/cough, etc. Previous Imaging: MBSS April 2024: Severe chronic pharyngeal>oral dysphagia characterized by diffuse pharyngeal deficits but most notably: reduced anterior hyoid movement and associated absent epiglottis inversion/PES opening, reduced pharyngeal wall stripping wave. Also noting mild reduced airway protection/closure. Oral control was quite good but did note some lingual tremulousness with liquids. Swallow initiation relatively timely. These deficits resulted in a significant amount of vallecular>pyriform residue and resulted in aspiration into the airway of thin liquids both during but especially after the swallow. Patient was successful at times in clearing thin liquids from the airway, but unable to effectively re-swallow and residue would repeatedly drip into the airway despite efforts to clear. Patient aspirated on both thin and thickened liquids but was less successful in clearing more viscous liquids from airway. No aspiration of puree and solid textures but residue was significant, with patient unable to actually clear material from pharynx even by end of study with several strategies and attempts made to clear. IMPRESSIONS: Severe to profound chronic oropharyngeal dysphagia in setting of Parkinson's Disease and likely exacerbated by recent COVID illness and subsequent pneumonias with deconditioning. Over previous study 1+ yr ago, he now appears with visibly decreased pharyngeal function, including tongue base retraction, pharyngeal stripping wave, soft palate elevation, laryngeal elevation, anterior hyoid movement, epiglottic inversion, and UES distension, resulting in increased volumes of aspiration now including purees in addition to liquids, significantly increased pharyngeal residue. With purees he was completely unable to transit any amount of bolus through the UES and relied on regurgitation to partially clear pharyngeal residue. While there was some penetration/aspiration during the swallow, he was largely aspirating on significant post-swallow residue in light of minimal pharyngeal clearance. Cued and spontaneous cough was in adequate to clear aspirated material. He was often able to clear penetrated material from laryngea l vestibule but would result in repeat penetration/aspiration. He achieved BEST UES distension and clearance with thin liquids, though aspirated on all consistencies. He is most likely to meet his nutritional needs on a liquidized diet based on today's results. Consistent, frequent aspiration is likely regardless of diet consistency at this time. Zeke has stated spontaneously that he is under no circumstances agreeable to using a feeding tube. Diet recommendations to focus on efficiency at this time, with strict mitigation recommendations in place (e.g., diligent oral care). ? Patient appears to be at high risk for potential aspiration PNA and/or pulmonary compromise and high risk for malnutrition, moderate risk for dehydration. Diet modification is indicated; non-oral nutrition is not indicated due to patient's stated preferences. Swallow prognosis is given: Positive prognostic factors: Age, Motivation, Family/caregiver support, Cognitive status, Negative prognostic factors: Severity, Time since onset, Ineffectiveness of trialed compensatory strategies, and pending patient/caregiver training in risk management as outlined. Patient appears to be a good candidate for behavioral swallow rehabilitation. Specialist referrals:? Palliative Care RECOMMENDATIONS: Diet Texture Recommendation:? IDDSI LEVEL SOLIDS 3-Liquidised Solids LIQUIDS 0-Thin Liquids Please see further details at?www.iddsi.org [email or web address]://www.iddsi.org/ MEDICATIONS Crushed, as able with 0-Thin Liquids Diet texture modification is per patient's preference; please adjust diet textures at patient's discretion & collaboration with care team. Do not alter medications (e.g., cut)? without advice from your MD or pharmacist. Risk Management Strategies:? Small bites, approx [id number] Small sips, approx 10 mL Multiple swallows/throat clears per bolus to encourage clearance of pharyngeal stasis/residue Control risk factors for aspiration pneumonia via (a) thorough oral hygiene (before/after all PO intake) & (b) maintaining physical mobility as tolerated PLAN: Therapy: Recommend subsequent outpatient session with [facility] to review results of today's exam and develop treatment plan as appropriate. Goals: TBD pending patient/caregiver interview Follow-up exam: PRN ----- OBJECTIVE Videofluoroscopic Swallow Evaluation (VFSE/MBSS) was conducted in the lateral projection by Speech-Language Pathologist, in collaboration with Radiologist, to evaluate oropharyngeal swallow function. Anatomic view under fluoroscopy: WFL PO Barium Contrast Trials Oral barium water-soluble contrast was administered as follows: IDDSI Level 0 Varibar thin liquid (40% w/v) IDDSI Level 2 Varibar nectar thick/mildly thick liquid (40% w/v) IDDSI Level 4 Varibar pudding/pureed/extremely thick (40% w/v) MBSImP Component Scores: COMPONENT Scale SCORE Previous SCORE 1 Lip closure (0-4) 1 Resulted in interlabial escape, without progression to anterior lip 1 Resulted in interlabial escape, without progression to anterior lip 2 Hold Position (0-3) 0 Maintained a cohesive bolus between tongue to palatal seal 0 Maintained a cohesive bolus between tongue to palatal seal 3 Bolus Preparation (0-4) NA 0 Resulted in timely and efficient chewing and mashing 4 Bolus Transport (0-4) 2 Was with slowed tongue motion 2 Was with slowed ton mandie motion 5 Oral Residue (0-4) 2 Was a collection on oral structures 2 Was a collection on oral structures 6 Swallow Initiation (0-4) 2 Occurred as bolus head at posterior laryngeal surface of epiglottis 2 Occurred as bolus head at posterior laryngeal surface of epiglottis 7 Soft Palate Elevation (0-4) 2 Allowed escape to the nasopharynx 1 Allowed a trace column of contrast or air between soft palate and pharyngeal wall 8 Laryngeal Elevation (0-3) 1 Was decreased with partial superior movement of thyroid cartilage/partial approximation of arytenoids to epiglottic petiole 1 Was decreased with partial superior movement of thyroid cartilage/partial approximation of arytenoids to epiglottic petiole 9 Anterior Hyoid Motion (0-2) 1 Demonstrated partial anterior movement 1 Demonstrated partial anterior movement 10 Epiglottic Movement (0-2) 2 Resulted in no inversion 2 Resulted in no inversion 11 Laryngeal Closure (0-2) 1 Was incomplete with narrow a column of air/contrast in laryngeal vestibule 1 Was incomplete with narrow a column of air/contrast in laryngeal vestibule 12 Pharyngeal Stripping Wave (0-2) 1 Was present, but diminished 1 Was presen t, but diminished 13 Pharyngeal Contraction (0-3) NA NA 14 PES Opening (0-3) 2 Demonstrated minimal distension/minimal duration, with marked obstruction of flow 1 Demonstrated partial distension/partial duration, with partial obstruction of flow 15 Tongue Base Retraction (0-4) 3 Allowed a wide column of contrast or air between the retracted tongue base and the posterior pharyngeal wall 2 Allowed a narrow column of contrast or air between the retracted tongue base and the posterior pharyngeal wall 16 Pharyngeal Residue (0-4) 4 Resulted from minimal to no pharyngeal clearance 3 Was the majority of contrast within or on pharyngeal structures 17 Esophageal Clearance (0-4) NA NA Results: COMPONENT Scale SCORE Previous SCORE 1 Oral Score (0-18) 3 6 2 Pharyngeal Score (0-29) 17 13 3 Esophageal Score (0-4) 0 0 Penetration-Aspiration Scale: COMPONENT Scale SCORE Previous SCORE 1 Thin liquid (1-8) 8 Contrast entered the airway, passed below the vocal folds, and no effort was made to eject. 8 Contrast entered the airway, passed below the vocal folds, and no effort was made to eject. 2 [place] thick (1-8) 8 Contrast entered the airway, passed below the vocal folds, and no effort was made to eject. 8 Contrast entered the airway, passed below the vocal folds, and no effort was made to eject. 3 Honey thick (1-8) NA NA 4 Pudding thick (1-8) 7 Contrast entered the airway, passed below the vocal folds, and was not ejected from the trachea despite effort. 1 Contrast did not enter the airway 5 Cookie (1-8) NA 1 Contrast did not enter the airway Trialed Compensatory Strategies & Outcome: Maneuvers Successful (+) Unsuccessful (-) Postures Successful (+) Unsuccessful (-) 3 second Preparatory Set? ? [place] Po sture? ? Cough? ? Posterior Head tilt? Reflexive? Cued? Throat Clear? ? Head Tilt to? Reflexive? ?+/- ? Left? ?- ? Cued? Right? ?- Saliva swallow? ?+/- Head Turn/Rotate to? ? Supraglottic Swallow? Left? ?- Super-supraglottic Swallow? Right? ?- Bolus Modifications Successful (+) Unsuccessful (-) Delivery/Alternating Consistencies ? Follow with Liquid Wash - ? Follow with Solid Bolus? Delivery/Via Straw? ? Reduced Volume? ?- Reduced Rate of Intake? ? Increased Viscosity? ?- Other:?? ? Thank you for allowing us to take part in this patient's care. Please feel free to contact the [facility] Speech Language Pathology Department with any questions/concerns.
== END 2024-08-16 00:32 ==
LOC: DI 00:12
PROVIDERS: PCP Family Medicine; Visit Provider Psychiatry & Neurology Neurology
DX: G20.B1 Parkinson's disease with dyskinesia, without mention of fluctuations (principal); R13.10 Dysphagia, unspecified
CPT/HCPCS: 92526; 74221

== ENCOUNTER → 2024-10-03 11:14 | Outpatient (BNVA) | payer MEDICARE, SELFPAY | PROVIDERS: PCP Family Medicine; Referring Provider Family Medicine; Visit Provider Psychiatry & Neurology Neurology | DX: G20.B1 Parkinson's disease with dyskinesia, without mention of fluctuations (principal); R13.10 Dysphagia, unspecified; K59.00 Constipation, unspecified | CPT/HCPCS: 99214 ==

== ENCOUNTER → 2025-01-09 09:46 | Outpatient (BNVA) | payer MEDICARE, SELFPAY | PROVIDERS: PCP Family Medicine; Referring Provider Family Medicine; Visit Provider Psychiatry & Neurology Neurology | DX: G20.B1 Parkinson's disease with dyskinesia, without mention of fluctuations (principal); R13.10 Dysphagia, unspecified; K59.00 Constipation, unspecified | CPT/HCPCS: 99214 ==